=== PATIENT | male | born 1950 | race Caucasian/White ===

== ENCOUNTER 2017-05-09 17:06 | Inpatient (IN) | payer MEDICARE ==
[2017-05-09 18:27] LABS: Hematocrit 40 % (42-52); Hemoglobin 13.2 g/dl (14.0-18.0); Mean Corpuscular HGB Conc 33 g/dl (31-36); Mean Corpuscular Hemoglobin 28 pg (27-31); Mean Corpuscular Volume 86 fL (80-94); Mean Platelet Volume 8 um3 (7.4-10.4); Red Blood Count 4.63 10^6/ul (4.0-5.4); Red Cell Distribution Width 15 % (10.5-15); White Blood Count 12.5 10^3/ul (3.5-10.8)
[2017-05-09 19:00] LABS: Urine Bacteria 1+ (Absent); Urine Bilirubin Negative (Negative); Urine Glucose Negative (Negative); Urine Nitrite Negative (Negative)
[2017-05-09 19:06] LABS: Albumin 3.7 g/dL (3.2-5.2); BUN/Creatinine Ratio 21.1 (8-20); EGFR African American 81.9 (>60); EGFR Non-African American 63.7 (>60); Potassium 4.8 mmol/L (3.5-5.0); Total Bilirubin 0.3 mg/dL (0.2-1.0); Total Protein 6.7 g/dL (6.4-8.9)
[2017-05-09] MEDS ORDERED: cefTRIAXone VIAL(*) 1,000 MG VIAL IM ONE (19:16)
[2017-05-09] MEDS ORDERED: Lidocaine 1%* 5 ML VIAL ONE (19:33)
[2017-05-09] MEDS ORDERED: Lidocaine 1%* 5 ML VIAL INJ ONE (19:40)
[2017-05-09] MEDS ORDERED: Ondansetron INJ* 2 MG/ML VIAL IV PRN (21:38)
[2017-05-09] MEDS ORDERED: Acetaminophen TAB* 325 MG PO PRN (21:38)
[2017-05-09] MEDS ORDERED: Dextrose 50% Syringe 50 ML* 25 GM/50 ML SYRINGE IV PUSH PRN (21:38)
[2017-05-09] MEDS ORDERED: NS 0.9% 1000 ML* 1,000 ML IV SCH (21:45)
[2017-05-09] MEDS ORDERED: NS 0.9% 1000 ML* 1,000 ML IV ONE (21:48)
[2017-05-09] MEDS ORDERED: Albuterol HFA INHALER* 8 gm MDI INH PRN (21:52)
[2017-05-09] MEDS ORDERED: Famotidine TAB* 20 MG PO PRN (21:52)
--- NOTE | 2017-05-09 22:19 | ED ---
Monae Keating Gabriel, scribed for Triny Webb MD on 05/09/17 at 1750 . GI/ HPI - HPI Summary HPI Summary: This patient is a 67 year old M BIBA to [facility] accompanied by his caregiver with a chief complaint of burning on peeing since 3 days ago. The patient rates the pain 5/10 in severity. Patient reports ABD distension. Patient denies fever, hematuria, chills, v/d, LOWRY, double vision, ear ache, CP, SOB, belly pain, back pain, anxiety, and depression. Pt has no catheter and reports a hard time emptying his bladder. His aide says his blood sugar is usually around 200 and thats where it was today. - History of Current Complaint Chief Complaint: EDUrogenitalProblems Stated Complaint: POSSIBLE UTI Hx Obtained From: Patient Onset/Duration: Started Days Ago - 2, Still Present Timing: Constant Pain Intensity: 5 Additional Locations for Males: Penis Associated Signs and Symptoms: Positive: Negative - fever, hematuria, chills, v/ d, LOWRY, double vision, ear ache, CP, SOB, belly pain, back pain, anxiety, and depression, Other: - ABD distension Aggravating Factor(s): Urination - Additional Pertinent History Primary Care Physician: KRISTIN - Allergy/Home Medications Allergies/Adverse Reactions: Allergies Allergy/AdvReac Type Severity Reaction Status Date / Time Shellfish Allergy Allergy Severe Anaphylatic Verified 12/12/15 08:40 Shock PMH/Surg Hx/FS Hx/Imm Hx Previously Healthy: No Endocrine/Hematology History: Reports: Hx Diabetes - ON INSULIN, BEEN Dx 1 YEAR Denies: Hx Anticoagulant Therapy, Hx Thyroid Disease Cardiovascular History: Reports: Hx Coronary Artery Disease, Hx Hypercholesterolemia, Hx Hypertension - ON DAILY MEDS, Other Cardiovascular Problems/Disorders - STATES CARDIAC STENTS " FEW YEARS AGO" Denies: Hx Angina, Hx Congestive Heart Failure, Hx Myocardial Infarction, Hx Pacemaker/ICD, Hx Valvular Heart Disease Respiratory History: Reports: Hx Asthma, Hx Pneumonia, Hx Sleep Apnea - DOES NOT USE AID, Other Respiratory Problems/Disorders - PNA Denies: Hx Chronic Obstructive Pulmonary Disease (COPD) GI History: Reports: Hx Gastroesophageal Reflux Disease, Hx Hiatal Hernia - ON DAILY MEDS History: Reports: Hx Benign Prostatic Hyperplasia, Hx Kidney Stones - Hx OF, MANY YEARS AGO, PASSED Denies: Hx Renal Disease Musculoskeletal History: Reports: Hx Back Problems Comment Only: Other Musculoskeletal History - HAD LUMBAR LAMINECTOMY "FEW YEARS AGO" PER PT Sensory History: Reports: Hx Contacts or Glasses Opthamlomology History: Reports: Hx Contacts or Glasses Neurological History: Reports: Hx Nerve Disease Denies: Hx Dementia, Hx Migraine, Hx Seizures, Other Neuro Impairments/ Disorders Psychiatric History: Reports: Hx Anxiety, Hx Depression Denies: Hx Panic Disorder, Hx Substance Abuse - Surgical History Surgery Procedure, Year, and Place: 2 CARDIAC STENTS. GALLBLADDER. COLON RESECTION. LAMINECTOMY Hx Anesthesia Reactions: No Infectious Disease History: No Infectious Disease History: Denies: Hx Hepatitis, Hx Human Immunodeficiency Virus (HIV), Traveled Outside the [place] in Last 30 Days - Family History Known Family History: Positive: Hypertension - ESSENBTIAL PRIMARY - Social History Alcohol Use: None Substance Use Type: Reports: None Smoking Status (MU): Never Smoked Tobacco Have You Smoked in the Last Year: No Review of Systems Negative: Fever, Chills Negative: Blurred Vision Negative: Ear Ache Negative: Chest Pain Negative: Shortness Of Breath Positive: Other - ABD distension . Negative: Vomiting, Diarrhea Positive: dysuria. Negative: hematuria Musculoskeletal: Negative - back pain Negative: Anxious, Depressed All Other Systems Reviewed And Are Negative: No Physical Exam - Summary Physical Exam Summary: Appearance: Alert, conversive, nontoxic appearing, obese, generalized weakness Skin: Warm, dry, no mottling, no rashes, no contusions HEENT: EOMI, PERRL, dry mucous membranes Neck: No masses on the neck, supple Respiratory: Clear to auscultation, breath sounds present, no rales, no rhonchi , no wheezes Cardiovascular: RRR, pulses are symmetrical in both lower and upper extremities Abdomen: Soft, non-tender, distended, slight suprapubic tenderness Bowel Sounds: Present Musculoskeletal: No CVA tenderness, no obvious deformity, moving all extremities in a grossly normal manner. Bilateral LE edema Neurological: A&Ox3, CN II-XII Intact, moving all extremities symmetrically Psychiatric: Normal affect and mood Triage Information Reviewed: Yes Vital Signs On Initial Exam: Initial Vitals BP 141/85 05/09/17 17:39 Vital Signs Reviewed: Yes - [place]jo Coma Scale Coma Scale Total: 15 Diagnostics - Vital Signs Vital Signs Temp Pulse Resp BP Pulse Ox 05/09/17 17:40 97.6 F 120 20 141/85 93 05/09/17 17:39 141/85 - Laboratory Lab Results: Lab Results 05/09/17 05/09/17 05/09/17 Range/Units 18:10 18:10 18:28 WBC 12.5 H (3.5-10.8) 10^3/ul RBC 4.63 (4.0-5.4) 10^6/ul Hgb 13.2 L (14.0-18.0) g/dl Hct 40 L (42-52) % MCV 86 (80-94) fL MCH 28 (27-31) pg MCHC 33 (31-36) g/dl RDW 15 (10.5-15) % Plt Count 327 (150-450) 10^3/ul MPV 8 (7.4-10.4) um3 Neut % (Auto) 71.7 (38-83) % Lymph % (Auto) 16.2 L (25-47) % [place] % (Auto) 8.8 (1-9) % Eos % (Auto) 2.2 (0-6) % Baso % (Auto) 1.1 (0-2) % Absolute Neuts (auto) 8.9 H (1.5-7.7) 10^3/ul Absolute Lymphs (auto) 2.0 (1.0-4.8) 10^3/ul Absolute Monos (auto) 1.1 H (0-0.8) 10^3/ul Absolute Eos (auto) 0.3 (0-0.6) 10^3/ul Absolute Basos (auto) 0.1 (0-0.2) 10^3/ul Absolute Nucleated RBC 0 10^3/ul Nucleated RBC % 0 Sodium 134 (133-145) mmol/L Potassium 4.8 (3.5-5.0) mmol/L Chloride 96 L (101-111) mmol/L Carbon Dioxide 32 (22-32) mmol/L Anion Gap 6 (2-11) mmol/L BUN 24 (6-24) mg/dL Creatinine 1.14 (0.67-1.17) mg/dL Est GFR ( Amer) 81.9 (>60) Est GFR (Non-Af Amer) 63.7 (>60) BUN/Creatinine Ratio 21.1 H (8-20) Glucose 254 H (70-100) mg/dL Calcium 9.0 (8.6-10.3) mg/dL Total Bilirubin 0.30 (0.2-1.0) mg/dL AST 12 L (13-39) U/L ALT 46 (7-52) U/L Alkaline Phosphatase 126 H (34-104) U/L Total Protein 6.7 (6.4-8.9) g/dL Albumin 3.7 (3.2-5.2) g/dL Globulin 3.0 (2-4) g/dL Albumin/Globulin Ratio 1.2 (1-3) Urine Color Yellow Urine Appearance Cloudy Urine pH 5.0 (5-9) Ur Specific [place] 1.018 (1.010-1.030) Urine Protein 2+(100 mg/dl) H (Negative) Urine Ketones Negative (Negative) Urine Blood 1+ H (Negative) Urine Nitrate Negative (Negative) Urine Bilirubin Negative (Negative) Urine Urobilinogen Negative (Negative) Ur Leukocyte Esterase 3+ H (Negative) Urine WBC (Auto) 3+(>20/hpf) H (Absent) Urine RBC (Auto) 3+(>10/hpf) H (Absent) Urine Bacteria 1+ H (Absent) Urine Glucose Negative (Negative) Result Diagrams: 05/09/17 18:10 05/09/17 18:10 Lab Statement: Any lab studies that have been ordered have been reviewed, and results considered in the medical decision making process. Re-Evaluation - Re-Evaluation First Eval Re-Evaluation Time: 21:08 Change: Unchanged - Patient states that he is unable to ambulate alone or even get out of his bed and that his home health aides come every day for 3 hours to take care of him. He says he is unable to care for himself and states if he relieves himself he must sit in it until home health aide comes. He has talked to his brother about this problem and would like to go in a chcf. Obviously the patient is unable to care for himself for this reasons patient will not be discharged. GIGU Course/Dx - Course Assessment/Plan: This patient is a 67 year old M BIBA to [facility] accompanied by his caregiver with a chief complaint of burning on peeing since 3 days ago. The patient rates the pain 5/10 in severity. Test results with no significant abnormalities except for UA shows pt has a bladder infection giving a shot of Rocephin and will be sending him home. Patient will be discharged with prescription for Bactrim and follow up from PCP. The patient is agreeable with this plan. At the time of discharge, pt conveyed to the nurse that he is unable to get out of his bed at home and his home health daycare provider is only at his house. I had a lengthy conversation with pt regarding his lack of mobilty and lack of abilty to care for himself. He further states that he and his brother have had conversations about him going to a chcf. he is not currently receiving any PT at home. Pt is stable and non-toxic but will require placement. I discussed this with the hospitalist who agrees to admit. - Diagnoses Provider Diagnoses: UTI (urinary tract infection), Weakness Discharge - Discharge Plan Condition: Stable Disposition: ADMITTED TO [facility] Prescriptions: Sulfamethox/Trimethoprim DS* [Bactrim DS 800/160 TAB*] 1 tab PO BID #14 tab Patient Education Materials: Urinary Traction Infection in Older Adults (ED) Referrals: Stefani Alvarez MD [Primary Care Provider] - Additional Instructions: Take bactrim twice a day for 7 days. return if worse or any new symptoms. It is important to follow up with your primary care physician. Take all medications as previously instructed. The documentation as recorded by the Monae arreguin Gabriel accurately reflects the service I personally performed and the decisions made by me, Triny Webb MD.
--- NOTE | 2017-05-09 23:37 | HP ---
CC: Dr. Alvarez * HISTORY AND PHYSICAL: DATE OF ADMISSION: 05/09/17 PRIMARY CARE PROVIDER: Dr. Alvarez. ATTENDING PHYSICIAN WHILE IN THE HOSPITAL: Beto Albert MD * (report dictated by Noam Schuster NP). CHIEF COMPLAINT: 1. Weakness. 2. Dysuria. HISTORY OF PRESENT ILLNESS: Mr. Hatfield is 67-year-old male patient carries quite a significant history with history of NPH, he has a CAR PICK UP DRIVER shunt, COSMO, noncompliant with his mask. He also carries history of diabetes, hypertension, hyperlipidemia, asthma, BPH, CAD, obesity, diverticulosis, status post partial colectomy for diverticulitis, GERD, chronic back pain, history of an abnormal gait comes, into our ER today stating that over the last month to 2 months, he has noticed he has had progressive steady decline in his functional status. He has been having more trouble with transfers. He has been having some more increasing weakness but over the last 3 days, he has had pain with urination. He has had some penile pain. He has had no chills or fevers. No back pain. He says he just is having kind of suprapubic pelvic pain. He was concerned today because the pain was not getting any better and he wanted to come in to be evaluated. He denied having any chest pain and no shortness of breath. No fevers or chills. Denied having any vomiting or diarrhea, says he just feels hungry now. So, he came into the ED, was evaluated, it was noted that he had elevated white count of 12,000. In addition to this, his heart rate was right around 90. In addition to this, it was also noted that he appeared to have UTI. Because of these findings, we were asked to evaluate for admission. PAST MEDICAL HISTORY: Significant for: 1. Normal pressure hydrocephalus. 2. COSMO. 3. Abnormal gait. 4. History of peripheral edema. 5. Hypertension. 6. Hyperlipidemia. 7. Diabetes. 8. Asthma. 9. BPH. 10. CAD. 11. Obesity. 12. Diverticulitis in the past. 13. GERD. 14. Chronic back pain. PAST SURGICAL HISTORY: He has had a cholecystectomy. He has had laminectomy. He has had a partial colectomy. He has had heart catheterization. He has had a CAR PICK UP DRIVER shunt placement. HOME MEDICATIONS: According to an old list in our computer and we are going to try to update this includes: 1. Flomax 1 tablet p.o. daily. 2. Lisinopril 1 tablet daily. 3. Ibuprofen 200 mg daily. 4. B12 500 mcg daily. 5. Atenolol 1 tablet p.o. daily. 6. Tylenol 2 tablets every 6 hours as needed. 7. Famotidine 20 mg p.o. daily as needed. 8. Aspirin 1 tablet p.o. daily. 9. ProAir 2 puffs inhaled 4 times a day as needed. 10. NovoLog subcu a.c. 9 units. 11. Flonase 2 sprays both nares daily as needed. 12. Lantus 74 units subcu at bedtime. 13. Simvastatin 1 tablet daily. 14. Prilosec 1 tablet daily. 15. Multivitamin 1 tablet daily. 16. Glucophage 2 tablets p.o. daily. 17. Glipizide 2 tablets p.o. daily. 18. Bactrim 1 tablet p.o. b.i.d., on which he was initially going to be discharged home on. ALLERGIES TO MEDICATIONS: Include SHELLFISH. FAMILY HISTORY: Both his parents have CAD. SOCIAL HISTORY: He does not smoke, does not drink. Surrogate decision maker is his brother, Nicko. REVIEW OF SYSTEMS: There is no documented fever. He denied having any significant weight change. No double vision. No ear discharge. He denied having any rhinorrhea. No sore throat. No thyroid enlargement. Denies having any chest pain. There is no orthopnea. No nocturnal dyspnea. He denied having any abdominal pain. No nausea, no vomiting. There was dysuria. No frequency. No seizure, no loss of consciousness. No pruritus and no skin ulcerations. Review of 14 systems completed, all others negative. PHYSICAL EXAMINATION GENERAL: At this time, Mr. Hatfield is a 67-year-old male patient. He is sitting on the ED stretcher. He does not appear to be in any acute distress. VITAL SIGNS: Blood pressure 140/77, pulse 92, respirations 16, O2 sat 99%, temperature 97.6. HEENT: Head: Atraumatic. Eyes: EOMs are intact. Sclerae are anicteric and not pale. Throat: Oral mucosa appears to be moist. No oropharyngeal erythema. NECK: Supple. LUNGS: Clear to auscultation bilaterally. No wheezes, rales, or rhonchi. HEART: Sounds S1, S2. Regular rate and rhythm. No murmurs, rubs, or gallops. ABDOMEN: Soft, flat, nontender. Bowel sounds were present. He did have some tenderness in the suprapubic area. EXTREMITIES: Pulses were 2+ throughout. He is able to move all 4 extremities. He has about 4/5 strength in the lower extremities bilaterally. He has 5/5 strength in upper extremities. No peripheral edema. NEUROLOGIC: He is awake, alert and oriented x3. His tongue is midline. Auto Detailer were equal. No gross focal deficits. SKIN: Intact. LABORATORY DATA: WBC 12.5, RBC 4.63, hemoglobin 13.2, hematocrit 40, platelet count 327. Sodium 134, potassium 4.8, chloride 96, bicarb 32, BUN 24, creatinine 1.14, glucose 240, calcium 9.0. Total bilirubin 0.3, AST 12, ALT 46 , alk phos 126. Albumin 3.7. Urine showed 2+ protein, 1+ blood, 3+ leukocyte esterase, 2+ wbc's, 2+ rbc, 1+ bacteria. Old medical records were reviewed. ASSESSMENT AND PLAN: Mr. Hatfield is a 67-year-old male patient coming into the ED today with complaints of weakness progressively getting worse over the last month, found to have urinary tract infection. He will be admitted under inpatient status for: 1. Urinary tract infection with signs of early sepsis, as evidenced by he does have an elevated heart rate right around 90. In addition to this, he does have a white count of 12.5 thousand. My plan will be to go ahead and give him a liter of fluid and get lactic acid, blood cultures, put him on Rocephin with a suspected source as urinary and continue to follow. 2. Weakness. He has progressively been declining he says over the last month or two months. So, I am going to get a CT of the head just to evaluate the CAR PICK UP DRIVER shunt to make sure it is stable. If there are any questions with this, we certainly will get consult from Neurosurgery. I will certainly get a PT/OT consult and the patient is interested in subacute rehab stay. 3. Normal pressure hydrocephalus. Again, we are going to evaluate his shunt with CT scan. 4. Obstructive sleep apnea. He is noncompliant with his CPAP. We will continue supportive care. 5. Abnormal gait. Again, we have ordered PT. 6. Diabetes: Lispro sliding scale. 7. Hypertension: Continue meds as described. 8. Hyperlipidemia: Continue statin. 9. Asthma: Continue p.r.n. ProAir. 10. Benign prostate hyperplasia: Continue Flomax. 11. History of coronary artery disease: Continue with aspirin therapy. He is also on a statin. Continue these. 12. History of gastroesophageal reflux disease: Continue PPI therapy. 13. Chronic back pain: Continue medications for pain. 14. DVT prophylaxis: He will be placed on heparin subcu. 15. Code status: Full code. 16. Fluid and nutrition: He can have a consistent carb diet. TIME SPENT: Time spent on the admission was 60 minutes, greater than half of the time was spent [id number] with the patient, obtaining history and physical , the other half of the time was spent going over the plan of care with the patient and implementing the plan of care. I did discuss plan of care with my attending, Dr. Albert, who is in agreement. NOAM SCHUSTER, ELIZABETH [id number]/CPS #: [id number] MADHAV
[2017-05-10] MEDS: Heparin VIAL(*) 5000 UNITS/ML VIAL (FIVE THOUSAND) SUBCUT SCH ×4 (00:04→21:38)
[2017-05-10 05:30] LABS: Hematocrit 36 % (42-52); Hemoglobin 11.8 g/dl (14.0-18.0); Mean Corpuscular HGB Conc 33 g/dl (31-36); Mean Corpuscular Hemoglobin 28 pg (27-31); Mean Corpuscular Volume 86 fL (80-94); Mean Platelet Volume 9 um3 (7.4-10.4); Red Blood Count 4.14 10^6/ul (4.0-5.4); Red Cell Distribution Width 15 % (10.5-15); White Blood Count 9.4 10^3/ul (3.5-10.8)
[2017-05-10 05:42] LABS: BUN/Creatinine Ratio 20.5 (8-20); Calcium 8.5 mg/dL (8.6-10.3); EGFR African American 75.7 (>60); EGFR Non-African American 58.9 (>60); Potassium 4.4 mmol/L (3.5-5.0)
--- NOTE | 2017-05-10 07:33 | HP ---
H&P (Free Text) History and Physical: Mr Hatfield is a 67YO male HX NPH s/p PERCHER shunt, DM2, HTN, & CAD who reports a gradual decline over the previous month with increasing weakness and inability to care for himself found to have a UTI. He will be admitted for ABX and evaluation of his hydrocephalus to r/o worsening.
--- NOTE | 2017-05-10 08:26 | RAD ---
Indication: Weakness. Current urinary tract infection. Slight confusion. Comparison: December 13, 2015 CT. Technique: Noncontrast CT vertex of skull through foramen magnum. Report: Tip of RIGHT frontal shunt catheter enters the RIGHT lateral ventricle and terminates at the level of the septum pellucidum without change. Unchanged magnitude of ventriculomegaly at the lateral and third ventricles with the atrium of the RIGHT lateral ventricle measuring 2.8 cm. Unremarkable fourth ventricle. Negative for sulcal effacement. Patent basal cisterns. Negative for moser matter white matter obscuration, intra or extra-axial hemorrhage, or mass effect. Unremarkable visualized orbital contents. No suspicious calvarial or skull base lesion evident. Clear visualized paranasal sinuses and mastoid air spaces. Unremarkable scalp. IMPRESSION: 1. No acute intracranial process. 2. Unchanged position of the RIGHT frontal shunt catheter and magnitude of lateral and third ventriculomegaly. Negative for significant mass effect.
[2017-05-10] MEDS: Multivitamins/Minerals TAB PO SCH (09:16)
[2017-05-10] MEDS: Atenolol TAB* 25 MG PO SCH (09:17)
[2017-05-10] MEDS: Tamsulosin CAP* 0.4 MG PO SCH (09:17)
[2017-05-10] MEDS: Insulin LISPRO* 1 UNITS UNIT SUBCUT SCH ×4 (09:17→18:27)
[2017-05-10] MEDS: Lisinopril TAB* 10 MG PO SCH (09:17)
[2017-05-10] MEDS: Omeprazole CAP* 20 MG PO SCH (09:17)
[2017-05-10] MEDS: Aspirin EC TAB* 325 MG PO SCH (09:17)
--- NOTE | 2017-05-10 13:55 | PN ---
Subjective Date of Service: 05/10/17 Interval History: Mr. Hatfield states that he has been weaker but that this is a chronically progressive problem which has worsened. In the past three days he has noted burning in his low abdomen with urination. He denies fever, chills. He has had no chest pain, SOB, or nausea. He reports that this burning pain has decreased since he was given antibiotics in the emergency room. Objective Active Medications: Acetaminophen (Tylenol Tab*) 650 mg PO Q6H PRN Albuterol (Ventolin Hfa Inhaler*) 2 puff INH QID PRN Aspirin (Ecotrin Ec Tab*) 325 mg PO DAILY [facility] Atenolol (Tenormin Tab*) 25 mg PO DAILY [facility] Atorvastatin Calcium (Lipitor*) 5 mg PO BEDTIME [facility] Dextrose (D50w Syringe 50 Ml*) 12.5 gm IV PUSH .FOR FS < 60 - SS PRN Famotidine (Pepcid Tab*) 20 mg PO DAILY PRN Heparin Sodium (Porcine) (Heparin Vial(*)) 5,000 units SUBCUT Q8HR [facility] Sodium Chloride (Ns 0.9% 1000 Ml*) 1,000 mls @ 100 mls/hr IV PER RATE [facility] Insulin Glargine (Lantus(*)) 74 units SUBCUT BEDTIME [facility] Insulin Human Lispro (Humalog*) 0 units SUBCUT AC [facility] Lisinopril (Prinivil Tab*) 10 mg PO DAILY [facility] Multivitamins/Minerals (Theragran/Minerals Tab*) 1 tab PO DAILY [facility] Omeprazole (Prilosec Cap*) 20 mg PO DAILY [facility] Ondansetron HCl (Zofran Inj*) 4 mg IV Q6H PRN Tamsulosin HCl (Flomax Cap*) 0.4 mg PO DAILY [facility] Vital Signs: Temp Pulse Resp BP Pulse Ox 98.0 F 78 16 121/65 94 05/10/17 11:23 05/10/17 11:23 05/10/17 11:23 05/10/17 11:23 05/10/17 11:23 Oxygen Devices in Use Now: None Appearance: Male sitting up in chair in NAD Eyes: No Scleral Icterus Ears/Nose/Mouth/Throat: Mucous Membranes Moist Neck: Trachea Midline Respiratory: Symmetrical Chest Expansion and Respiratory Effort, Clear to Auscultation Cardiovascular: NL Sounds; No Murmurs; No JVD, - - +1 pitting edema Abdominal: NL Sounds; No Tenderness; No Distention Extremities: No Edema Skin: No Rash or Ulcers Neurological: Alert and Oriented x 3, NL Muscle Strength and Tone Nutrition: Taking PO's Result Diagrams: 05/10/17 04:57 05/10/17 04:57 Additional Lab and Data: Vital Signs: Temp Pulse Resp BP Pulse Ox 98.0 F 78 16 121/65 94 05/10/17 11:23 05/10/17 11:23 05/10/17 11:23 05/10/17 11:23 05/10/17 11:23 Assess/Plan/Problems-Billing Assessment: Mr. Hatfield is a 67 yo male with a PMH of NPH with AUDIT CONTROL CLERK shunt, COSMO, DM, HTN who was admitted on 05/10/17 with UTI and weakness. - Patient Problems (1) UTI (urinary tract infection) Comment: - Continue ceftriaxone, await cultures. - Based on tachycardia and elevated WBC, would treat at prostatitis with extended duration of antibiotics. (2) Diabetes Comment: - BGs 400. - Increase Lantus, add standing lispro to sliding scale with meals (3) Normal pressure hydrocephalus Comment: - Neurosurgery to consult. (4) CAD (coronary artery disease) Comment: - Stable. - Cont ASA, atenolol and atorvastatin. (5) GERD (gastroesophageal reflux disease) Comment: - Continue omeprazole. (6) HLD (hyperlipidemia) Comment: - Continue atorvastatin. (7) HTN (hypertension) Comment: - SBP 120-140s. - Controlled with atenolol and lisinopril (8) COSMO on CPAP Comment: - CPAP (9) DVT prophylaxis Comment: SCDs only (10) Full code status Status and Disposition: Inpatient. Anticipate discharge to home when medically stable.
[2017-05-10] MEDS ORDERED: cefTRIAXone(*) 1 GM in D5W 50 ML BAG* 50 ML IVPB SCH (14:30)
[2017-05-10] MEDS ORDERED: Magnesium Hydroxide LIQ* 30 ML UDC PO ONE (19:47)
[2017-05-10] MEDS ORDERED: Insulin GLARGINE(*) 1 UNITS UNIT SUBCUT SCH (21:00)
[2017-05-10] MEDS: Insulin GLARGINE(*) 1 UNITS UNIT SUBCUT SCH (21:38)
[2017-05-10] MEDS: Atorvastatin* 10 MG TAB PO SCH (21:38)
[2017-05-11 05:03] LABS: Calcium 8.5 mg/dL (8.6-10.3); EGFR African American 90.1 (>60); Potassium 4.7 mmol/L (3.5-5.0)
[2017-05-11] MEDS: Heparin VIAL(*) 5000 UNITS/ML VIAL (FIVE THOUSAND) SUBCUT SCH ×3 (06:08→21:23)
[2017-05-11] MEDS: Aspirin EC TAB* 325 MG PO SCH (08:33)
[2017-05-11] MEDS: Tamsulosin CAP* 0.4 MG PO SCH (08:33)
[2017-05-11] MEDS: Omeprazole CAP* 20 MG PO SCH (08:33)
[2017-05-11] MEDS: Atenolol TAB* 25 MG PO SCH (08:33)
[2017-05-11] MEDS: Lisinopril TAB* 10 MG PO SCH (08:33)
[2017-05-11] MEDS: Multivitamins/Minerals TAB PO SCH (08:33)
[2017-05-11] MEDS: Insulin GLARGINE(*) 1 UNITS UNIT SUBCUT SCH ×2 (08:35→21:22)
[2017-05-11] MEDS: Insulin LISPRO* 1 UNITS UNIT SUBCUT SCH ×7 (08:37→17:44)
--- NOTE | 2017-05-11 09:54 | CONSULT ---
Consult Consult: Neurosurgery Consult Date of Admission: 05/09/17 Date of Consult: 05/11/17 Reason for Consult: Generalized weakness, NPH Referring Provider: Dina Catherine NP Primary Care Physician: Dr. Alvarez HPI: This is a 67 year old male with past medical history significant for NPH s/ p FRAUD EXAMINER shunt placement in December 2015, HTN, CAD, obesity, COSMO, peripheral edema, and Diabetes who [place] [facility] [place] complaints of burning with urination and worsening weakness. He has a history of FRAUD EXAMINER shunt placement for NPH on 12/12/[address] Costello. Pre-operatively, he reports experiencing symptoms of urinary incontinence, gait instability requiring a wheelchair and short term memory loss. Post-operatively, he was discharged to [facility] where he underwent rehab. Per the patient, he regained much of his strength and mobility while at rehab and was able to use a walker instead of a wheelchair. He also reports some weight loss with increased physical fitness. He reports no improvement in memory and incontinence post-operatively. He was discharged home from [facility] and continued to do well for a short period of time. Since discharge home, continues to have nursing care and aides assist with activities of daily living including bathing, cooking meals, toileting, and getting up out of bed. He was recommended not to get out of bed without assistance. It is unclear whether or not he is participating in physical or occupational therapy at home. Since returning home, he reports a steady decline in mobility and slowly worsening generalized weakness. He now uses a wheelchair at all times and is able to stand for transfers. He has continued to have intermittent episodes of urinary incontinence, unchanged from before surgery. The episodes are intermittent and consist of small volumes of urine, not the entire bladder. He also continues to have difficulty with short term memory which has been stable post-operatively. He denies headache, vision changes, difficulty breathing, chest pain, blurred vision, difficulty swallowing or eating, abdominal pain, nausea, vomiting, bilateral upper extremity and lower extremity numbness, tingling, weakness and pain. He does complain of mild low back pain when he first gets up in the morning. He denies lightheadedness, dizziness, tremor and seizure. He reports pedal edema which has been present for several months. He reports loss of interest in many hobbies and daily activities. Past medical history: 1. NPH, s/p FRAUD EXAMINER shunt placement 12/12/15 Dr. Costello 2. HTN 3. CAD 4. COSMO 5. Obesity 6. Diabetes 7. Peripheral edema 8. Asthma 9. BPH 10. Diverticulosis 11. GERD 12. HLD Past surgical history: 1. FRAUD EXAMINER shunt placement, 12/11/16 Dr. Costello [facility] [place]. [place] colect[place] 3. Cholecystectomy Home medications: 1. Atenolol TAB* [Tenormin TAB* 25 MG] 1 tab PO DAILY 05/08/12 [History Confirmed 05/09/17] 2. Simvastatin TAB(NF) [Zocor 10 MG (NF)] 1 tab PO BEDTIME 05/08/12 [History Confirmed 05/09/17] 3. glipiZIDE TAB.XL* [Glucotrol Xl*] 2 tab PO DAILY 05/08/12 [History Confirmed 05/09/17] 4. metFORMIN* [Glucophage 1000 MG TAB *] 2 tab PO DAILY 05/08/12 [History Confirmed 05/09/17] 5. Multivitamins/Minerals TAB* [Theragran/minerals TAB*] 1 tab PO DAILY [History Confirmed 05/09/17] 6. Omeprazole CAP* [Prilosec CAP* 20 MG] 1 tab PO DAILY 09/24/13 [History Confirmed 05/09/17] 7. Tamsulosin CAP* [Flomax CAP*] 1 tab PO DAILY 10/03/15 [History Confirmed 01/16] 8. Albuterol inh POWDER (NF) [Proair Respiclick] 2 puff IN QID PRN 11/23/15 [ History Confirmed 05/09/17] 9. Aspirin 1 tab PO DAILY 11/23/15 [History Confirmed 05/09/17] 10. Blood Glucose Monitoring Suppl [Freestyle Lite Blood Gluc] 1 mis XX DAILY [History Confirmed 12/12/15] 11. Cyanocobalamin TAB* [Vitamin B12 TAB*] 500 mcg PO DAILY 11/23/15 [History Confirmed 05/09/17] 12. Fluticasone NASAL * [Flonase *] 2 spray BOTH NARES DAILY PRN 11/23/15 [ History Confirmed 05/09/17] 13. Ibuprofen [Ibuprofen 200 MG] 200 mg PO DAILY PRN 11/23/15 [History Confirmed 05/09/17] 14. Insulin Glargine [Lantus Solostar] 74 units SUBCUT BEDTIME 11/23/15 [ History Confirmed 05/09/17] 15. Insulin Pen Needle [Bd Pen Needle/Short/Ultra 31G X 8 mm] 1 mis XX DAILY [History Confirmed 12/12/15] 16. Lisinopril TAB* [Prinivil TAB 10 MG*] 1 tab PO DAILY 11/23/15 [History Confirmed 05/09/17] 17. Acetaminophen 2 tab PO Q6H PRN 12/12/15 [History Confirmed 05/09/17] 18. Famotidine 20 mg PO DAILY PRN 12/12/15 [History Confirmed 05/09/17] 19. Humalog 9 units SUBCUT AC 12/12/15 [History Confirmed 05/09/17] 20. Sulfamethox/Trimethoprim DS* [Bactrim DS 800/160 TAB*] 1 tab PO BID #14 tab 05/09/17 [Rx] Allergies: 1. Shellfish Social history: This patient lives at home alone and has daily nursing and aide care. He does not smoke and does not consume alcohol. ROS: Full ROS completed and all pertinent findings stated in HPI. All others negative. Physical exam: Vital Signs: Temp Pulse Resp BP Pulse Ox 97.4 F 76 16 132/62 100 05/11/17 19:11 05/11/17 19:11 05/11/17 19:25 05/11/17 19:11 05/11/17 19:11 General: Patient is alert and oriented to person, place and time. No distress. Sitting up comfortably in bed conversing with friend. HEENT: Right frontal FRAUD EXAMINER shunt valve palpable, surgical wound well healed. PERRL , EOMI. Gross hearing intact. Moist mucus membranes. Neck: Neck is supple, symmetric and nontender. CV: Radial pulses 2+ and equal. Pedal pulses difficult to palpate secondary to edema. Lungs: Breathing is nonlabored and lungs are clear. Abdomen: The abdomen is obese and mildly distended. Nontender to palpation. Normoactive bowel sounds. Neuro: Speech is clear and coherent. Oriented to person, place and time. CN II- XII intact. Finger to nose coordination mildly slow. Strength in upper and lower extremities 5/5 with exception of left hip flexor is 4+/5. No pronator drift. Hoffmans negative. Sensation intact throughout. Extremities: Pedal and pretibial edema, baseline per patient. No clubbing or cyanosis. Imagin. CT on 05/09/17 shows FRAUD EXAMINER shunt placement on the right and unchanged ventriculomegaly compared to post-operative CT on 12/13/15. Assessment and Plan: This is a 67 year old with multiple medical conditions who presented with dysuria and generalized weakness. He has a history of FRAUD EXAMINER shunt placement on 12/12/15 for NPH. Post-operatively, gait and weakness improved while at rehab but after returning home, mobility worsened. Symptoms of intermittent incontinence and short term memory difficulty are persistent and unchanged since pre-op. Given the patient's presentation, history, CT brain results and current symptoms, I do not expect that the FRAUD EXAMINER shunt is dysfunctional. I suspect weakness related to deconditioning while sedentary at home. Restarting physical and occupational therapy is recommended. At this time , no further NPH work up is indicated. He is welcome to follow up in office with us as needed. This case was discussed and plan formulated with Dr. Costello. Plan discussed with Dina Cathernie NP.
[2017-05-11] MEDS ORDERED: Insulin LISPRO* 1 UNITS UNIT SUBCUT ONE (12:01)
--- NOTE | 2017-05-11 13:18 | PN ---
Subjective Date of Service: 05/11/17 Interval History: Mr. Hatfield states that he is feeling much better. He has no dysuria or lower abdominal pain. He denies any other complaint including chest pain, SOB, nausea , or abdominal pain. Objective Active Medications: Acetaminophen (Tylenol Tab*) 650 mg PO Q6H PRN Albuterol (Ventolin Hfa Inhaler*) 2 puff INH QID PRN Aspirin (Ecotrin Ec Tab*) 325 mg PO DAILY [facility] Atenolol (Tenormin Tab*) 25 mg PO DAILY [facility] Atorvastatin Calcium (Lipitor*) 5 mg PO BEDTIME [facility] Dextrose (D50w Syringe 50 Ml*) 12.5 gm IV PUSH .FOR FS < 60 - SS PRN Famotidine (Pepcid Tab*) 20 mg PO DAILY PRN Heparin Sodium (Porcine) (Heparin Vial(*)) 5,000 units SUBCUT Q8HR [facility] Sodium Chloride (Ns 0.9% 1000 Ml*) 1,000 mls @ 100 mls/hr IV PER RATE [facility] Ceftriaxone Sodium 1 gm/ (Dextrose) 50 mls @ 200 mls/hr IVPB Q24H [facility] Insulin Glargine (Lantus(*)) 84 units SUBCUT BEDTIME [facility] Insulin Glargine (Lantus(*)) 20 units SUBCUT 0900 [facility] Insulin Human Lispro (Humalog*) 0 units SUBCUT AC [facility] Insulin Human Lispro (Humalog*) 5 units SUBCUT AC [facility] Lisinopril (Prinivil Tab*) 10 mg PO DAILY [facility] Multivitamins/Minerals (Theragran/Minerals Tab*) 1 tab PO DAILY [facility] Omeprazole (Prilosec Cap*) 20 mg PO DAILY [facility] Ondansetron HCl (Zofran Inj*) 4 mg IV Q6H PRN Tamsulosin HCl (Flomax Cap*) 0.4 mg PO DAILY [facility] Vital Signs - 8 hr 05/11/17 05/11/17 05/11/17 07:32 08:27 11:56 Temperature 97.5 F 97.4 F Pulse Rate 78 69 Respiratory 16 16 16 Rate Blood Pressure 130/48 114/56 (mmHg) O2 Sat by Pulse 94 95 Oximetry Oxygen Devices in Use Now: None Appearance: Male sitting up in chair, eating lunch, in NAD Eyes: No Scleral Icterus Ears/Nose/Mouth/Throat: Mucous Membranes Moist Neck: Trachea Midline Respiratory: Symmetrical Chest Expansion and Respiratory Effort, Clear to Auscultation Cardiovascular: NL Sounds; No Murmurs; No JVD, - - +1 pitting edema B LEs Abdominal: NL Sounds; No Tenderness; No Distention Lymphatic: No Cervical Adenopathy Extremities: - - +1 pitting edema B LEs Skin: No Rash or Ulcers Neurological: Alert and Oriented x 3, NL Muscle Strength and Tone Nutrition: Taking PO's Result Diagrams: 05/10/17 04:57 05/11/17 04:35 Additional Lab and Data: . Microbiology and Other Data: . Assess/Plan/Problems-Billing Assessment: Mr. Hatfield is a 67 yo male with a PMH of NPH with WOOD STOCK BLANK HANDLER shunt, COSMO, DM, HTN who was admitted on 05/10/17 with UTI and weakness. - Patient Problems (1) UTI (urinary tract infection) Comment: - UA with 3+ LE and 1+ bacteria. Patient with symptoms of dysuria. Urine culture negative. - Plan to treat with 3 week course of cipro out of concern for prostatitis given signs of sepsis on admission and uncontrolled diabetes. (2) Diabetes Comment: - BGs 270-400. - Increase Lantus (add 20units am lispro to 84 units pm lispro), continue standing lispro with lispro sliding scale with meals - Patient reports that his blood sugar is much better controlled at home, ? if secondary in part to infection but his most recent HgbA1c was 10.3. Dr. Alvarez' s most recent progress note mentions that he has had low blood sugar at times which has prevented raising his lantus dosing. (3) Normal pressure hydrocephalus Comment: - Appreciate neurosurgery consult. - No evidence of WOOD STOCK BLANK HANDLER shunt dysfunction, patient's decline has been chronic, incontinence and memory issues are unchanged since shunt was placed in 2016. (4) CAD (coronary artery disease) Comment: - Stable. - Cont ASA, atenolol and atorvastatin. (5) GERD (gastroesophageal reflux disease) Comment: - Continue omeprazole. (6) HLD (hyperlipidemia) Comment: - Continue atorvastatin. (7) HTN (hypertension) Comment: - SBP 120-140s. - Controlled with atenolol and lisinopril (8) COSMO on CPAP Comment: - CPAP (9) DVT prophylaxis Comment: - Heparin SQ. (10) Full code status Status and Disposition: Inpatient. Anticipate discharge to home when medically stable.
[2017-05-11] MEDS: Ciprofloxacin TAB* 500 MG PO SCH (21:20)
[2017-05-11] MEDS: Atorvastatin* 10 MG TAB PO SCH (21:21)
[2017-05-12 04:36] LABS: Hematocrit 38 % (42-52); Hemoglobin 12.6 g/dl (14.0-18.0); Mean Corpuscular HGB Conc 33 g/dl (31-36); Mean Corpuscular Hemoglobin 28 pg (27-31); Mean Corpuscular Volume 85 fL (80-94); Mean Platelet Volume 9 um3 (7.4-10.4); Red Blood Count 4.44 10^6/ul (4.0-5.4); Red Cell Distribution Width 15 % (10.5-15); White Blood Count 10.5 10^3/ul (3.5-10.8)
[2017-05-12] MEDS: Heparin VIAL(*) 5000 UNITS/ML VIAL (FIVE THOUSAND) SUBCUT SCH ×3 (05:30→21:21)
[2017-05-12] MEDS: Lisinopril TAB* 10 MG PO SCH (09:07)
[2017-05-12] MEDS: Aspirin EC TAB* 325 MG PO SCH (09:08)
[2017-05-12] MEDS: Ciprofloxacin TAB* 500 MG PO SCH ×2 (09:08→21:21)
[2017-05-12] MEDS: Atenolol TAB* 25 MG PO SCH (09:08)
[2017-05-12] MEDS: Insulin GLARGINE(*) 1 UNITS UNIT SUBCUT SCH ×2 (09:08→21:21)
[2017-05-12] MEDS: Tamsulosin CAP* 0.4 MG PO SCH (09:08)
[2017-05-12] MEDS: Multivitamins/Minerals TAB PO SCH (09:08)
[2017-05-12] MEDS: Insulin LISPRO* 1 UNITS UNIT SUBCUT SCH ×6 (09:08→18:14)
[2017-05-12] MEDS: Omeprazole CAP* 20 MG PO SCH (09:08)
[2017-05-12] MEDS ORDERED: Docusate CAP* 100 MG PO PRN (12:21)
[2017-05-12] MEDS ORDERED: Senna TAB PO PRN (12:22)
--- NOTE | 2017-05-12 14:09 | PN ---
Subjective Date of Service: 05/12/17 Interval History: Patient states he feels slightly worse than yesterday due to abdominal discomfort that he states feels like constipation. Patient denies dysuria, F/C, N/V, CP, SOB, Dizziness, weakness, or other pain. Patient is a EZ stand out of bed and is very interested in NATALYA. Of note, patient has had a bowel movement the last 3 days and had a BM today after which he felt better. Family History: Unchanged from Admission Social History: Unchanged from Admission Past Medical History: Unchanged from Admission Objective Active Medications: Acetaminophen (Tylenol Tab*) 650 mg PO Q6H PRN PRN Reason: FEVER/PAIN Last Admin: 05/12/17 11:10 Dose: 650 mg Albuterol (Ventolin Hfa Inhaler*) 2 puff INH QID PRN PRN Reason: SOB/WHEEZING Aspirin (Ecotrin Ec Tab*) 325 mg PO DAILY [facility] Last Admin: 05/12/17 09:08 Dose: 325 mg Atenolol (Tenormin Tab*) 25 mg PO DAILY [facility] Last Admin: 05/12/17 09:08 Dose: 25 mg Atorvastatin Calcium (Lipitor*) 5 mg PO BEDTIME [facility] Last Admin: 05/11/17 21:21 Dose: 5 mg Ciprofloxacin (Cipro Tab*) 500 mg PO BID [facility] Last Admin: 05/12/17 09:08 Dose: 500 mg Dextrose (D50w Syringe 50 Ml*) 12.5 gm IV PUSH .FOR FS < 60 - SS PRN PRN Reason: FS < 60 Docusate Sodium (Colace Cap*) 100 mg PO DAILY PRN PRN Reason: CONSTIPATION Famotidine (Pepcid Tab*) 20 mg PO DAILY PRN PRN Reason: HEARTBURN Heparin Sodium (Porcine) (Heparin Vial(*)) 5,000 units SUBCUT Q8HR [facility] Last Admin: 05/12/17 05:30 Dose: 5,000 units Sodium Chloride (Ns 0.9% 1000 Ml*) 1,000 mls @ 100 mls/hr IV PER RATE [facility] Last Admin: 05/10/17 01:57 Dose: 100 mls/hr Insulin Glargine (Lantus(*)) 84 units SUBCUT BEDTIME [facility] Last Admin: 05/11/17 21:22 Dose: 84 units Insulin Glargine (Lantus(*)) 35 units SUBCUT 0900 [facility] Insulin Human Lispro (Humalog*) 0 units SUBCUT AC [facility] PRN Reason: Protocol Last Admin: 05/12/17 12:48 Dose: 12 unit Insulin Human Lispro (Humalog*) 5 units SUBCUT AC [facility] Last Admin: 05/12/17 12:49 Dose: 5 unit Lisinopril (Prinivil Tab*) 10 mg PO DAILY [facility] Last Admin: 05/12/17 09:07 Dose: 10 mg Multivitamins/Minerals (Theragran/Minerals Tab*) 1 tab PO DAILY [facility] Last Admin: 05/12/17 09:08 Dose: 1 tab Omeprazole (Prilosec Cap*) 20 mg PO DAILY [facility] Last Admin: 05/12/17 09:08 Dose: 20 mg Ondansetron HCl (Zofran Inj*) 4 mg IV Q6H PRN PRN Reason: NAUSEA Senna (Senokot Tab*) 1 tab PO DAILY PRN PRN Reason: CONSTIPATION Tamsulosin HCl (Flomax Cap*) 0.4 mg PO DAILY [facility] Last Admin: 05/12/17 09:08 Dose: 0.4 mg Vital Signs - 8 hr 05/12/17 05/12/17 05/12/17 07:34 08:00 11:32 Temperature 97.9 F 97.8 F Pulse Rate 66 72 Respiratory 18 18 17 Rate Blood Pressure 136/69 121/78 (mmHg) O2 Sat by Pulse 96 96 Oximetry Oxygen Devices in Use Now: None Appearance: Patient is a 67yo female who appears stated age and is sitting in the bed in [facility]. Eyes: No Scleral Icterus, PERRLA Ears/Nose/Mouth/Throat: NL Teeth, Lips, Gums, Clear Oropharnyx, Mucous Membranes Moist Neck: NL Appearance and Movements; NL JVP, Trachea Midline Respiratory: Symmetrical Chest Expansion and Respiratory Effort, Clear to Auscultation Cardiovascular: NL Sounds; No Murmurs; No JVD, RRR, - - 2+ Pitting edema in B/L LE which patient states is baseline for him. Abdominal: NL Sounds; No Tenderness; No Distention, No Hepatosplenomegaly, - - No Suprapubic tenderness or CVA tenderness. Lymphatic: No Cervical Adenopathy Extremities: No Clubbing, Cyanosis Skin: No Rash or Ulcers, No Nodules or Sclerosis Neurological: Alert and Oriented x 3, NL Sensation, NL Muscle Strength and Tone Result Diagrams: 05/12/17 04:17 05/11/17 04:35 Additional Lab and Data: . Microbiology and Other Data: . Assess/Plan/Problems-Billing Assessment: Mr. Hatfield is a 67 yo male with a PMH of NPH with PROGRAM DEVELOPER shunt, COSMO, DM, HTN who was admitted on 05/10/17 with UTI and weakness. Patient is much improved and is hoping to go to rehab. - Patient Problems (1) UTI (urinary tract infection) Current Visit: Yes Status: Acute Comment: UA with 3+ LE and 1+ bacteria. Patient with symptoms of dysuria. Urine culture negative. Plan to treat with 3 week course of cipro out of concern for prostatitis given signs of sepsis on admission and uncontrolled diabetes. (2) Diabetes Current Visit: No Status: Acute Code(s): E11.9 - TYPE 2 DIABETES MELLITUS WITHOUT COMPLICATIONS SNOMED Code(s): 22924304 Comment: BGs 194-400. Increase Lantus (35units am glargine 84 units pm glargine), continue standing lispro with lispro sliding scale with meals Patient reports that his blood sugar is much better controlled at home, ? if secondary in part to infection but his most recent HgbA1c was 10.3. Dr. Alvarez' s most recent progress note mentions that he has had low blood sugar at times which has prevented raising his lantus dosing. Fasting AM FSBG was 194 today. (3) Normal pressure hydrocephalus Current Visit: No Status: Acute Code(s): G91.2 - (IDIOPATHIC) NORMAL PRESSURE HYDROCEPHALUS SNOMED Code(s): 45306995 Comment: Appreciate neurosurgery consult. No evidence of PROGRAM DEVELOPER shunt dysfunction, patient's decline has been chronic, incontinence and memory issues are unchanged since shunt was placed in 2016. (4) S/P PROGRAM DEVELOPER shunt Current Visit: No Status: Acute Comment: Functioning properly per neurosurgery. (5) Sepsis Current Visit: No Status: Acute Priority: High Onset Date: 07/04/14 Comment: Resolved (6) CAD (coronary artery disease) Current Visit: No Status: Chronic Priority: Medium Code(s): I25.10 - ATHSCL HEART DISEASE OF [place] CORONARY ARTERY W/O ANG PCTRS SNOMED Code(s): 12662327 Comment: No S/S ACS Cont ASA, atenolol and atorvastatin. (7) GERD (gastroesophageal reflux disease) Current Visit: No Status: Chronic Code(s): K21.9 - GASTRO-ESOPHAGEAL REFLUX DISEASE WITHOUT ESOPHAGITIS SNOMED Code(s): 405235740 Comment: Continue omeprazole. (8) HLD (hyperlipidemia) Current Visit: No Status: Chronic Code(s): E78.5 - HYPERLIPIDEMIA, UNSPECIFIED SNOMED Code(s): 23008602 Comment: Continue atorvastatin. (9) HTN (hypertension) Current Visit: No Status: Chronic Code(s): I10 - ESSENTIAL (PRIMARY) HYPERTENSION SNOMED Code(s): 14378371 Comment: SBP 120-140s. Controlled with atenolol and lisinopril (10) DVT prophylaxis Current Visit: No Status: Acute Priority: Medium Onset Date: 07/04/14 Code(s): LMG0957 - SNOMED Code(s): 803135501 Comment: Heparin SQ. (11) Full code status Current Visit: No Status: Chronic Priority: Medium Onset Date: 07/04/14 Code(s): Z78.9 - OTHER SPECIFIED HEALTH STATUS SNOMED Code(s): 470781663 Status and Disposition: Inpatient. Awaiting bed offer from [facility].
[2017-05-12] MEDS: Atorvastatin* 10 MG TAB PO SCH (21:20)
[2017-05-13 05:39] LABS: Hematocrit 38 % (42-52); Hemoglobin 12.7 g/dl (14.0-18.0); Mean Corpuscular HGB Conc 33 g/dl (31-36); Mean Corpuscular Hemoglobin 29 pg (27-31); Mean Corpuscular Volume 86 fL (80-94); Mean Platelet Volume 9 um3 (7.4-10.4); Red Blood Count 4.45 10^6/ul (4.0-5.4); Red Cell Distribution Width 15 % (10.5-15); White Blood Count 10.6 10^3/ul (3.5-10.8)
[2017-05-13 05:50] LABS: BUN/Creatinine Ratio 16.3 (8-20); Calcium 8.6 mg/dL (8.6-10.3); EGFR Non-African American 58.3 (>60)
[2017-05-13 06:07] LABS: Potassium 5.1 mmol/L (3.5-5.0)
[2017-05-13] MEDS: Heparin VIAL(*) 5000 UNITS/ML VIAL (FIVE THOUSAND) SUBCUT SCH ×3 (06:15→21:56)
[2017-05-13] MEDS ORDERED: Insulin GLARGINE(*) 1 UNITS UNIT SUBCUT SCH (09:00)
[2017-05-13] MEDS: Atenolol TAB* 25 MG PO SCH (09:03)
[2017-05-13] MEDS: Tamsulosin CAP* 0.4 MG PO SCH (09:03)
[2017-05-13] MEDS: Multivitamins/Minerals TAB PO SCH (09:04)
[2017-05-13] MEDS: Omeprazole CAP* 20 MG PO SCH (09:04)
[2017-05-13] MEDS: Aspirin EC TAB* 325 MG PO SCH (09:04)
[2017-05-13] MEDS: Ciprofloxacin TAB* 500 MG PO SCH ×2 (09:04→21:53)
[2017-05-13] MEDS: Insulin LISPRO* 1 UNITS UNIT SUBCUT SCH ×6 (09:08→18:38)
[2017-05-13 13:30] LABS: BUN/Creatinine Ratio 16.7 (8-20); Calcium 8.8 mg/dL (8.6-10.3); EGFR African American 81.9 (>60); EGFR Non-African American 63.7 (>60); Potassium 4.8 mmol/L (3.5-5.0)
--- NOTE | 2017-05-13 18:40 | PN ---
Subjective Date of Service: 05/13/17 Interval History: Patient has no complaints including palpitations, CP, SOB, N/V, Abdominal pain, F/C, Dysuria, urinary frequency, decrease in urine volume, or other pain. Patient in a good mood and excited to go to rehab. Family History: Unchanged from Admission Social History: Unchanged from Admission Past Medical History: Unchanged from Admission Objective Active Medications: Acetaminophen (Tylenol Tab*) 650 mg PO Q6H PRN PRN Reason: FEVER/PAIN Last Admin: 05/12/17 11:10 Dose: 650 mg Albuterol (Ventolin Hfa Inhaler*) 2 puff INH QID PRN PRN Reason: SOB/WHEEZING Aspirin (Ecotrin Ec Tab*) 325 mg PO DAILY [facility] Last Admin: 05/13/17 09:04 Dose: 325 mg Atenolol (Tenormin Tab*) 25 mg PO DAILY [facility] Last Admin: 05/13/17 09:03 Dose: 25 mg Atorvastatin Calcium (Lipitor*) 5 mg PO BEDTIME [facility] Last Admin: 05/12/17 21:20 Dose: 5 mg Ciprofloxacin (Cipro Tab*) 500 mg PO BID [facility] Last Admin: 05/13/17 09:04 Dose: 500 mg Dextrose (D50w Syringe 50 Ml*) 12.5 gm IV PUSH .FOR FS < 60 - SS PRN PRN Reason: FS < 60 Docusate Sodium (Colace Cap*) 100 mg PO DAILY PRN PRN Reason: CONSTIPATION Last Admin: 05/12/17 21:20 Dose: 100 mg Famotidine (Pepcid Tab*) 20 mg PO DAILY PRN PRN Reason: HEARTBURN Heparin Sodium (Porcine) (Heparin Vial(*)) 5,000 units SUBCUT Q8HR [facility] Last Admin: 05/13/17 13:22 Dose: 5,000 units Insulin Glargine (Lantus(*)) 84 units SUBCUT BEDTIME [facility] Last Admin: 05/12/17 21:21 Dose: 84 units Insulin Glargine (Lantus(*)) 35 units SUBCUT 0900 [facility] Last Admin: 05/13/17 09:05 Dose: 35 unit Insulin Human Lispro (Humalog*) 0 units SUBCUT AC [facility] PRN Reason: Protocol Last Admin: 05/13/17 13:20 Dose: 9 unit Insulin Human Lispro (Humalog*) 5 units SUBCUT AC [facility] Last Admin: 05/13/17 13:22 Dose: 5 unit Multivitamins/Minerals (Theragran/Minerals Tab*) 1 tab PO DAILY [facility] Last Admin: 05/13/17 09:04 Dose: 1 tab Omeprazole (Prilosec Cap*) 20 mg PO DAILY [facility] Last Admin: 05/13/17 09:04 Dose: 20 mg Ondansetron HCl (Zofran Inj*) 4 mg IV Q6H PRN PRN Reason: NAUSEA Senna (Senokot Tab*) 1 tab PO DAILY PRN PRN Reason: CONSTIPATION Tamsulosin HCl (Flomax Cap*) 0.4 mg PO DAILY [facility] Last Admin: 05/13/17 09:03 Dose: 0.4 mg Vital Signs - 8 hr 05/13/17 11:40 Temperature 98.4 F Pulse Rate 69 Respiratory 16 Rate Blood Pressure 117/67 (mmHg) O2 Sat by Pulse 95 Oximetry Oxygen Devices in Use Now: None Appearance: Patient is a 67yo male who appears stated age and is sitting in the bed in [facility]. Eyes: No Scleral Icterus, PERRLA Ears/Nose/Mouth/Throat: NL Teeth, Lips, Gums, Clear Oropharnyx, Mucous Membranes Moist Neck: NL Appearance and Movements; NL JVP, Trachea Midline Respiratory: Symmetrical Chest Expansion and Respiratory Effort, Clear to Auscultation Cardiovascular: NL Sounds; No Murmurs; No JVD, RRR, No Edema Abdominal: NL Sounds; No Tenderness; No Distention, No Hepatosplenomegaly Lymphatic: No Cervical Adenopathy Extremities: No Edema, No Clubbing, Cyanosis Skin: No Rash or Ulcers, No Nodules or Sclerosis Neurological: Alert and Oriented x 3, NL Sensation, NL Muscle Strength and Tone Result Diagrams: 05/13/17 04:49 05/13/17 12:24 Additional Lab and Data: . Microbiology and Other Data: . Assess/Plan/Problems-Billing Assessment: Mr. Hatfield is a 67 yo male with a PMH of NPH with SENSITIZED PAPER TESTER shunt, COSMO, DM, HTN who was admitted on 05/10/17 with UTI and weakness. Patient is much improved and is hoping to go to rehab. - Patient Problems (1) UTI (urinary tract infection) Current Visit: Yes Status: Acute Comment: UA with 3+ LE and 1+ bacteria. Patient with symptoms of dysuria. Urine culture negative. Plan to treat with 3 week course of cipro out of concern for prostatitis given signs of sepsis on admission and uncontrolled diabetes. (2) Diabetes Current Visit: No Status: Acute Code(s): E11.9 - TYPE 2 DIABETES MELLITUS WITHOUT COMPLICATIONS SNOMED Code(s): 07039278 Comment: BGs 194-400. Increase Lantus (50units am glargine 84 units pm glargine), continue standing lispro with lispro sliding scale with meals Patient reports that his blood sugar is much better controlled at home, ? if secondary in part to infection but his most recent HgbA1c was 10.3. Dr. Alvarez' s most recent progress note mentions that he has had low blood sugar at times which has prevented raising his lantus dosing. Fasting AM FSBG was 279 today. (3) Normal pressure hydrocephalus Current Visit: No Status: Acute Code(s): G91.2 - (IDIOPATHIC) NORMAL PRESSURE HYDROCEPHALUS SNOMED Code(s): 46620136 Comment: Appreciate neurosurgery consult. No evidence of SENSITIZED PAPER TESTER shunt dysfunction, patient's decline has been chronic, incontinence and memory issues are unchanged since shunt was placed in 2016. (4) S/P SENSITIZED PAPER TESTER shunt Current Visit: No Status: Acute Comment: Functioning properly per neurosurgery. (5) Sepsis Current Visit: No Status: Acute Priority: High Onset Date: 07/04/14 Comment: Resolved (6) CAD (coronary artery disease) Current Visit: No Status: Chronic Priority: Medium Code(s): I25.10 - ATHSCL HEART DISEASE OF [place] CORONARY ARTERY W/O ANG PCTRS SNOMED Code(s): 06077652 Comment: No S/S ACS Cont ASA, atenolol and atorvastatin. (7) GERD (gastroesophageal reflux disease) Current Visit: No Status: Chronic Code(s): K21.9 - GASTRO-ESOPHAGEAL REFLUX DISEASE WITHOUT ESOPHAGITIS SNOMED Code(s): 976640955 Comment: Continue omeprazole. (8) HLD (hyperlipidemia) Current Visit: No Status: Chronic Code(s): E78.5 - HYPERLIPIDEMIA, UNSPECIFIED SNOMED Code(s): 62456522 Comment: Continue atorvastatin. (9) HTN (hypertension) Current Visit: No Status: Chronic Code(s): I10 - ESSENTIAL (PRIMARY) HYPERTENSION SNOMED Code(s): 35940673 Comment: SBP 120-140s. Controlled with atenolol Lisinopril held due to hyperkalemia (10) DVT prophylaxis Current Visit: No Status: Acute Priority: Medium Onset Date: 07/04/14 Code(s): BFF9017 - SNOMED Code(s): 614068881 Comment: Heparin SQ. (11) Full code status Current Visit: No Status: Chronic Priority: Medium Onset Date: 07/04/14 Code(s): Z78.9 - OTHER SPECIFIED HEALTH STATUS SNOMED Code(s): 263590985 Status and Disposition: Inpatient. Bed offer from [facility], will discharge in AM.
[2017-05-13] MEDS: Atorvastatin* 10 MG TAB PO SCH (21:54)
[2017-05-13] MEDS: Insulin GLARGINE(*) 1 UNITS UNIT SUBCUT SCH (21:57)
[2017-05-14 05:03] LABS: Hematocrit 39 % (42-52); Hemoglobin 12.9 g/dl (14.0-18.0); Mean Corpuscular HGB Conc 33 g/dl (31-36); Mean Corpuscular Hemoglobin 28 pg (27-31); Mean Corpuscular Volume 86 fL (80-94); Mean Platelet Volume 9 um3 (7.4-10.4); Red Blood Count 4.56 10^6/ul (4.0-5.4); Red Cell Distribution Width 15 % (10.5-15); White Blood Count 10.7 10^3/ul (3.5-10.8)
[2017-05-14 05:17] LABS: BUN/Creatinine Ratio 18.5 (8-20); EGFR African American 87.2 (>60); EGFR Non-African American 67.8 (>60); Potassium 4.4 mmol/L (3.5-5.0)
[2017-05-14] MEDS: Heparin VIAL(*) 5000 UNITS/ML VIAL (FIVE THOUSAND) SUBCUT SCH (06:35)
[2017-05-14] MEDS ORDERED: Insulin GLARGINE(*) 1 UNITS UNIT SUBCUT SCH (09:00)
[2017-05-14] MEDS: Atenolol TAB* 25 MG PO SCH (09:03)
[2017-05-14] MEDS: Aspirin EC TAB* 325 MG PO SCH (09:03)
[2017-05-14] MEDS: Omeprazole CAP* 20 MG PO SCH (09:03)
[2017-05-14] MEDS: Tamsulosin CAP* 0.4 MG PO SCH (09:03)
[2017-05-14] MEDS: Ciprofloxacin TAB* 500 MG PO SCH (09:03)
[2017-05-14] MEDS: Multivitamins/Minerals TAB PO SCH (09:03)
[2017-05-14] MEDS: Insulin LISPRO* 1 UNITS UNIT SUBCUT SCH ×2 (09:04→09:07)
--- NOTE | 2017-05-14 12:25 | DS ---
CC: Dr. Stefani Alvarez * DATE OF ADMISSION: 05/09/2017. DATE OF DISCHARGE: 05/14/2017. PRIMARY CARE PHYSICIAN: Dr. Stefani Alvarez. MY ATTENDING WHILE IN THE HOSPITAL: Dr. Barbraa Gross * (dictated by YAKELIN Wing). PRIMARY DISCHARGE DIAGNOSES: 1. Urinary tract infection, presumed prostatitis. 2. Weakness due to deconditioning. SECONDARY DISCHARGE DIAGNOSES: 1. Normal pressure hydrocephalus. 2. Obstructive sleep apnea. 3. Peripheral edema. 4. Hypertension. 5. Hyperlipidemia. 6. Diabetes. 7. Asthma. 8. Benign prostatic hypertrophy. 9. Coronary artery disease. 10. GERD. 11. Chronic back pain. STUDIES DONE WHILE IN THE HOSPITAL: 1. Brain CT from 05/09/2017 read as no acute intracranial. Unchanged position of the right frontal shunt catheter and magnitude of lateral and third ventriculomegaly. Negative for significant mass effect. 2. EKG from 05/13/2017 read as normal sinus rhythm, rate 72, no ST changes, normal axis, no other abnormalities. MEDICATIONS AT DISCHARGE: 1. Simvastatin 10 mg p.o. at bedtime. 2. Metformin 2000 mg p.o. daily. 3. Atenolol 25 mg p.o. daily. 4. Omeprazole 20 mg one tab p.o. daily. 5. Multivitamin. 6. Flomax 0.4 mg p.o. daily. 7. Vitamin B12 500 mcg p.o. daily. 8. Ibuprofen 200 mg p.o. daily. 9. Blood glucose monitoring strips. 10. Albuterol inhaler ProAir RespiClick two puffs inhalation q.i.d. as needed. 11. Aspirin 325 mg p.o. daily. 12. Flonase two sprays both nares daily as needed. 13. Lisinopril 10 mg one tab p.o. daily. 14. Tylenol 625 mg p.o. q.6 hours as needed. 15. Ciprofloxacin 500 mg p.o. b.i.d. 16. Colace 100 mg p.o. daily as needed. 17. Insulin Glargine 45 units subcutaneous 0900. 18. Insulin Glargine 84 units subcutaneous at bedtime. 19. Insulin Lispro 10 units subcutaneous a.c. 20. Senokot one tab p.o. daily as needed. New medications at discharge: Ciprofloxacin, Docusate, insulin Glargine, insulin Lispro, Senokot. Medications discontinued at discharge: Humalog, Famotidine, insulin Glargine 74 units subcutaneous at bedtime, Glipizide two tabs p.o. daily. HOSPITAL COURSE: This is a brief summary to the patient's presentation. For more details, please see the history and physical from Noam Schuster NP on 12/2016. In brief, the patient is a 67-year-old male with a past medical history for the above who presented with pain with urination and a steady decline in his functional status with increased weakness over the past three days. The patient had a white blood cell count of 1200 and a heart rate of 90. He was admitted for complicated urinary tract infection with systemic symptoms. The patient was placed on Ceftriaxone for two days to begin. The patient improved on the first day. A Neurosurgery consult was obtained to assess the patency of his shunt. Per the consultation report from YAKELIN Coburn on 05/11/2017, the patient's shunt is functioning properly and not likely the cause of his weakness, and recommended physical and occupational therapy. The patient had a previous episode of weakness after his surgery for NPH from which he recovered well with physical and occupational therapy and subacute rehab. The patient improved greatly with regards to his urinary tract infection , having no dysuria. On day three of his hospitalization, the patient was switched from Ceftriaxone to Ciprofloxacin 500 mg p.o. b.i.d. on 05/10/2017. The patient worked with physical therapy and occupational therapy and was identified to have needs needing subacute rehab. The patient's white blood cell count declined from 12.5 to 9.4 and then stayed at approximately 10.5 for the rest of his hospitalization. The patient's creatinine was at 1.14 initially and reached a high of 1.23, but essentially at baseline for the duration of his hospitalization. The patient's blood sugars were uncontrolled likely due to his acute illness throughout his entire hospitalization with his low being 194 on the morning of May 12 and his high being 410 on the evening of May 13. The patient's Glargine insulin was increased twice during his hospitalization to the current dosages at which he is still elevated. The patient was treated with sliding scale insulin and received 30 units on the day of 05/13/2017. The patient also received 15 units of standing insulin subcutaneous on 05/13/2017 with meals. The patient was amenable and very excited for discharge and will be discharged to [facility] on . The patient had hyperkalemia up to 5.1 on 05/13/2017 which resolved without intervention. PHYSICAL EXAMINATION ON THE DAY OF DISCHARGE: General: The patient is a 67- year- old male who appears his stated age, sitting comfortable in the bed in no acute distress. Vital Signs on the day of discharge: Temperature 97.5, pulse rate 69, respiratory rate 16, oxygen saturation 94 percent on room air, blood pressure 146/71. HEENT: Head normocephalic, atraumatic. Sclerae anicteric. No conjunctival injection. Nasal mucosa moist, no discharge. No pharyngeal erythema. Oral mucosa moist. Neck: Supple, nontender, no lymphadenopathy, no carotid bruit auscultated. Cardiac: Regular rate and rhythm. No clicks, murmurs, gallops or rubs. Pulses 2+ in bilateral dorsalis pedis, posterior tibialis and radial areas. There is stable 2+ pitting edema in the bilateral lower extremity which the patient states is at baseline for him. Respiratory: Clear to auscultation bilaterally. No wheezes, rales or rhonchi. Good air exchange bilaterally. Abdomen: Obese, distended, nontender. Bowel sounds present. Normoactive in all four quadrants. No hepatosplenomegaly. No abdominal bruits auscultated. Genitourinary: No suprapubic tenderness, no CVA tenderness. Skin: Clean, dry, intact, no rash. Neuro: Cranial nerves II through XII. Alert and oriented times three. No focal deficits. The patient has 4/5 strength throughout with good effort and no asymmetry. Psychiatric: The patient is pleasant and cooperative. LABORATORY DATA ON THE DAY OF DISCHARGE: White blood cell count 10.7, hemoglobin 12.9, platelet count 322; sodium 135, potassium 4.4, chloride 101, creatinine 1.08, glucose 216, calcium 9.0. DISCHARGE PLAN: The patient will be discharged to subacute rehab for PT and OT services and scientologist of his functional status. The patient will be treated presumptively for prostatitis due to the systemic symptoms accompanying his UTI for a total of three weeks, ending on 05/29/2017 in the evening. The patient should return to the hospital for systemic symptoms of infection, such as fever not responsive to Tylenol, uncontrolled chills or other alarming symptoms. The patient's shunt is functioning properly and it not likely the etiology of his weakness. The patient should take his insulin as prescribed and be monitored for hypoglycemia after the acute phase of his illness has passed and should have his long-acting insulin increased as needed for hyperglycemia. ACTIVITY: The patient should engage in activity as tolerated. The patient currently uses an EasyStand lift. The patient should be engaged in rehab with a goal of returning home. DIET: The patient should have a consistent carbohydrate diet. TIME SPENT: Approximately 60 minutes were spent on this discharge, 30 of which were spent [id number] with patient obtaining history and physical and discussing treatment plan. YAKELIN WING [id number]/CPS #: [id number]
[2017-05-14 12:36] VITALS: BP 139/69
== END 2017-05-14 12:25 | DRG 872 ==
LOC: ED 17:06 → SSU 21:35
PROVIDERS: ADMIT Hospitalist; ATTEND Internal Medicine
DX: A41.9 Sepsis, unspecified organism (principal); G91.2 (Idiopathic) normal pressure hydrocephalus; E11.65 Type 2 diabetes mellitus with hyperglycemia; I11.9 Hypertensive heart disease without heart failure; N39.0 Urinary tract infection, site not specified; N41.9 Inflammatory disease of prostate, unspecified; G47.33 Obstructive sleep apnea (adult) (pediatric); I25.10 Atherosclerotic heart disease of native coronary artery without angina pectoris; E78.5 Hyperlipidemia, unspecified; J45.909 Unspecified asthma, uncomplicated; N40.0 Benign prostatic hyperplasia without lower urinary tract symptoms; K21.9 Gastro-esophageal reflux disease without esophagitis; G89.29 Other chronic pain; E87.5 Hyperkalemia; Z98.2 Presence of cerebrospinal fluid drainage device; E66.9 Obesity, unspecified; Z68.36 Body mass index [BMI] 36.0-36.9, adult; Z79.84 Long term (current) use of oral hypoglycemic drugs; Z79.1 Long term (current) use of non-steroidal anti-inflammatories (NSAID); Z79.82 Long term (current) use of aspirin; Z79.4 Long term (current) use of insulin; Z79.899 Other long term (current) drug therapy; Z91.013 Allergy to seafood; Z82.49 Family history of ischemic heart disease and other diseases of the circulatory system
CPT/HCPCS: 36415; 70450; 80048; 80053; 81003; 81015; 82947; 83605; 85025; 85610; 85730; 87040; 87086; 93005; A9270-GY; J0696; J1644

== ENCOUNTER 2021-06-02 09:12 | Inpatient (IN) ==
[2021-06-02 09:30] LABS: PCO2 Arterial 67 mmHg (35-45); PO2 Arterial 72 mmHg (80-100)
[2021-06-02] MEDS ORDERED: Etomidate 40 mg/20 ml (2 MG/ML) 20 ml VIAL (40 mg) ONE (09:32)
[2021-06-02] MEDS ORDERED: Rocuronium 50 mg VIAL 10 mg/ml 5 ml VIAL (50 mg) ONE ×2 (09:33→10:46)
[2021-06-02 10:13] LABS: Urine Appearance Cloudy; Urine Bilirubin Negative (Negative); Urine Blood Negative (Negative); Urine Color Yellow; Urine Glucose Negative (Negative); Urine Ketones Negative (Negative); Urine Nitrite Negative (Negative); Urine Protein 2+(100 mg/dL) (Negative); Urine Specific Gravity 1.014 (1.002-1.030); Urine Urobilinogen Negative (Negative)
[2021-06-02 10:17] LABS: ABS Lymphocytes 1.7 10^3/ul (1.0-4.8); ABS Monocytes 0.7 10^3/ul (0-0.8); Eosinophil % 0.3 %; Hematocrit 39 % (42-52); Hemoglobin 12.4 g/dL (14.0-18.0); Lymphocyte % 12.5 %; Mean Corpuscular HGB Conc 32 g/dL (31-36); Mean Corpuscular Hemoglobin 28 pg (27-31); Mean Corpuscular Volume 88 fL (80-94); Mean Platelet Volume 8.2 fL (7.4-10.4); Platelet Count 328 10^3/uL (150-450); Red Blood Count 4.48 10^6 /uL (4.18-5.48); Red Cell Distribution Width 16 % (10-15); White Blood Count 13.5 10^3/uL (3.5-10.8)
[2021-06-02 10:30] LABS: Activated Partial Thrombo Time 32.4 seconds (26.0-38.0); Albumin 3.4 g/dL (3.2-5.2); Albumin/Globulin Ratio 1.1 (1-3); C Reactive Protein 16.92 mg/L (<8.01); Calcium 8.7 mg/dL (8.6-10.3); Globulin 3.2 g/dL (2-4); INR 1.03 (0.86-1.15); Total Bilirubin 0.2 mg/dL (0.2-1.0); Total Protein 6.6 g/dL (6.4-8.9); eGFR CKD-EPI 48.9 (>60)
[2021-06-02 10:32] LABS: Troponin I 0.01 ng/mL (<0.03)
[2021-06-02] MEDS ORDERED: Propofol 10 mg/ml 100 ML BTL 100 ML ONE ×3 (10:46→15:58)
[2021-06-02] MEDS ORDERED: Succinylcholine 200 mg VIAL 20 mg/ml 10 ml VIAL (200 mg) ONE (10:47)
[2021-06-02 10:52] LABS: Potassium 5.1 mmol/L (3.5-5.0)
[2021-06-02 11:10] LABS: Urine Bacteria 1+ (Absent); Urine Red Blood Cell Trace(0-2/hpf) (Absent); Urine White Blood Cell Trace(0-5/hpf) (Absent)
[2021-06-02] MEDS ORDERED: Iodixanol (CONTRAST) 320 MG/ML 100 ML SDV IV ONE (12:01)
[2021-06-02] MEDS ORDERED: Vancomycin 1,000 MG in NS 0.9% 250 ml 250 ML IVPB ONE (12:15)
[2021-06-02] MEDS ORDERED: Cefepime 1 GM in Dextrose 1 GM/50 ML BAG IV ONE (12:15)
[2021-06-02] MEDS ORDERED: Piperacillin/Tazobac ADVAN 3.375 GM in NS 0.9% 100 ml BAG 100 ML IV ONE (14:22)
[2021-06-02] MEDS ORDERED: Zosyn per Pharmacy NOTE FOLLOW UP SCH (15:00)
[2021-06-02] MEDS ORDERED: Vancomycin per Pharmacy 1 EA NOTE FOLLOW UP SCH (15:00)
[2021-06-02 15:14] LABS: Prolactin 66.5 ng/mL (1.0-20.0)
[2021-06-02] MEDS: Heparin 5000 UNITS/ML 1 mL VIAL SUBCUT SCH (16:17)
[2021-06-02] MEDS: Propofol 10 mg/ml 100 ML BTL 100 ML IV SCH ×2 (16:17→19:54)
[2021-06-02] MEDS: Chlorhexidine MOUTHWASH 0.12% 15 ML UDC TOPICAL SCH ×2 (16:17→19:27)
[2021-06-02] MEDS: Lactated Ringers 1000 ml BAG 1,000 ML IV SCH (16:30)
[2021-06-02 17:14] LABS: Urine Benzodiazepine Screen None Detected (None Detect); Urine Cannabinoids Screen None Detected (None Detect); Urine Opiates Screen None Detected (None Detect)
[2021-06-02 17:22] LABS: Calcium 8.4 mg/dL (8.6-10.3); Magnesium 2.1 mg/dL (1.9-2.7); Phosphorus 1.4 mg/dL (2.5-5.0); eGFR CKD-EPI 52.6 (>60)
[2021-06-02] MEDS ORDERED: Propofol 10 MG/ML 20 ML BTL ONE (19:03)
[2021-06-02] MEDS: ZOSYN 3.375 GM Q8H per EXTENDED INFUSION IV SCH (20:37)
[2021-06-02] MEDS: Potassium & Sodium Phos 250 mg = 1 PACKET PO SCH (20:39)
[2021-06-02] MEDS: Famotidine IV 10 MG/ML 2 ml VIAL (20 mg) IV SLOW PU SCH (20:39)
[2021-06-02] MEDS: Vancomycin 1000 MG in NS 0.9% 250 ML IVPB SCH (22:49)
[2021-06-03] MEDS: Propofol 10 mg/ml 100 ML BTL 100 ML IV SCH ×2 (00:23→04:48)
[2021-06-03] MEDS: Chlorhexidine MOUTHWASH 0.12% 15 ML UDC TOPICAL SCH ×3 (00:28→08:07)
[2021-06-03] MEDS: Heparin 5000 UNITS/ML 1 mL VIAL SUBCUT SCH ×2 (03:35→15:10)
[2021-06-03] MEDS: ZOSYN 3.375 GM Q8H per EXTENDED INFUSION IV SCH ×3 (05:26→20:20)
[2021-06-03 05:46] LABS: Hematocrit 35 % (42-52); Hemoglobin 11.8 g/dL (14.0-18.0); Mean Corpuscular HGB Conc 33 g/dL (31-36); Mean Corpuscular Hemoglobin 28 pg (27-31); Mean Corpuscular Volume 85 fL (80-94); Mean Platelet Volume 7.8 fL (7.4-10.4); Platelet Count 286 10^3/uL (150-450); Red Blood Count 4.16 10^6 /uL (4.18-5.48); Red Cell Distribution Width 15 % (10-15)
[2021-06-03] MEDS: Lactated Ringers 1000 ml BAG 1,000 ML IV SCH (05:51)
[2021-06-03 06:03] LABS: INR 1.14 (0.86-1.15)
[2021-06-03 06:31] LABS: Potassium 4.1 mmol/L (3.5-5.0)
[2021-06-03 06:32] LABS: Albumin 3.2 g/dL (3.2-5.2); Albumin/Globulin Ratio 1.1 (1-3); Calcium 8.6 mg/dL (8.6-10.3); Globulin 2.9 g/dL (2-4); Magnesium 1.8 mg/dL (1.9-2.7); Phosphorus 1.7 mg/dL (2.5-5.0); Total Bilirubin 0.5 mg/dL (0.2-1.0); Total Protein 6.1 g/dL (6.4-8.9); eGFR CKD-EPI 44.2 (>60)
[2021-06-03] MEDS ORDERED: Magnesium Sulfate IV 3 GM in NS 0.9% 100 ml BAG 100 ML IVPB ONE (07:39)
[2021-06-03] MEDS ORDERED: Potassium Phosphate IV 15 MMOLE in NS 0.9% 250 ml 250 ML IVPB ONE (08:01)
[2021-06-03] MEDS: Potassium & Sodium Phos 250 mg = 1 PACKET PO SCH (08:07)
[2021-06-03] MEDS: Famotidine IV 10 MG/ML 2 ml VIAL (20 mg) IV SLOW PU SCH ×2 (08:07→20:21)
[2021-06-03] MEDS: Vancomycin 1000 MG in NS 0.9% 250 ML IVPB SCH (09:01)
[2021-06-03] MEDS ORDERED: Albuterol/Ipratropium NEB.SOL (2.5/0.5 MG) 3 ML NEB.SOLN INH PRN (11:09)
[2021-06-03] MEDS: methylPREDNISolone SOD 40 mg/ml 1 ml VIAL IV SCH (12:10)
[2021-06-03 12:41] LABS: PCO2 Arterial 49 mmHg (35-45); PO2 Arterial 105 mmHg (80-100)
[2021-06-03] MEDS ORDERED: Furosemide 20 mg/2 ml IV VIAL IV SLOW PU ONE (14:52)
[2021-06-04] MEDS: ZOSYN 3.375 GM Q8H per EXTENDED INFUSION IV SCH (04:59)
[2021-06-04] MEDS: Heparin 5000 UNITS/ML 1 mL VIAL SUBCUT SCH ×2 (04:59→15:09)
[2021-06-04 05:17] LABS: Hematocrit 37 % (42-52); Hemoglobin 11.8 g/dL (14.0-18.0); Mean Corpuscular HGB Conc 32 g/dL (31-36); Mean Corpuscular Hemoglobin 28 pg (27-31); Mean Corpuscular Volume 86 fL (80-94); Mean Platelet Volume 7.9 fL (7.4-10.4); Platelet Count 320 10^3/uL (150-450); Red Blood Count 4.27 10^6 /uL (4.18-5.48); Red Cell Distribution Width 15 % (10-15); White Blood Count 12.8 10^3/uL (3.5-10.8)
[2021-06-04 05:31] LABS: Calcium 8.5 mg/dL (8.6-10.3); Magnesium 2.3 mg/dL (1.9-2.7); Potassium 4.3 mmol/L (3.5-5.0); eGFR CKD-EPI 42.3 (>60)
[2021-06-04] MEDS: Famotidine IV 10 MG/ML 2 ml VIAL (20 mg) IV SLOW PU SCH ×2 (10:21→20:17)
[2021-06-04] MEDS: methylPREDNISolone SOD 40 mg/ml 1 ml VIAL IV SCH (10:22)
[2021-06-04] MEDS ORDERED: Vancomycin Trough Check NOTE FOLLOW UP ONE (10:30)
[2021-06-04] MEDS: Mometasone/Formoter 200/5 MDI INH SCH ×2 (11:13→19:58)
[2021-06-04] MEDS ORDERED: Dextrose 50% Syringe 50 ml 25 GM/50 ML SYRINGE IV PUSH PRN (12:33)
[2021-06-04] MEDS ORDERED: Furosemide 20 mg/2 ml IV VIAL IV SLOW PU ONE (14:43)
[2021-06-05] MEDS: Heparin 5000 UNITS/ML 1 mL VIAL SUBCUT SCH ×2 (03:07→15:21)
[2021-06-05 06:34] LABS: Calcium 8.2 mg/dL (8.6-10.3); Phosphorus 3.5 mg/dL (2.5-5.0); Potassium 4.1 mmol/L (3.5-5.0); eGFR CKD-EPI 47.7 (>60)
[2021-06-05] MEDS: Mometasone/Formoter 200/5 MDI INH SCH ×2 (08:20→21:22)
[2021-06-05] MEDS: methylPREDNISolone SOD 40 mg/ml 1 ml VIAL IV SCH (09:06)
[2021-06-05] MEDS: Famotidine IV 10 MG/ML 2 ml VIAL (20 mg) IV SLOW PU SCH ×2 (09:06→23:28)
[2021-06-05 12:40] LABS: Adenovirus Undetected (Undetected); Bordetella parapertussis Undetected (Undetected); Bordetella pertussis Undetected (Undetected); Chlamydophila pneumoniae Undetected (Undetected); Coronavirus 229E Undetected (Undetected); Coronavirus HKU1 Undetected (Undetected); Coronavirus NL63 Undetected (Undetected); Coronavirus OC43 Undetected (Undetected); Human Metapneumovirus Undetected (Undetected); Human Rhinovirus/Enterovirus Undetected (Undetected); Influenza A Undetected (Undetected); Influenza B Undetected (Undetected); Mycoplasmoides pneumoniae Undetected (Undetected); Parainfluenza Virus 1 Undetected (Undetected); Parainfluenza Virus 2 Undetected (Undetected); Parainfluenza Virus 3 Undetected (Undetected); Parainfluenza Virus 4 Undetected (Undetected); Respiratory Syncytial Virus Undetected (Undetected); Specimen Source NASOPHARYNGEAL SWAB
[2021-06-05 17:11] LABS: Glucose Confirmatory 450 mg/dL (70-100)
[2021-06-05] MEDS: Insulin GLARGINE 100 un/ml 10 ml VIAL SUBCUT SCH (23:29)
[2021-06-06] MEDS: Heparin 5000 UNITS/ML 1 mL VIAL SUBCUT SCH (04:39)
[2021-06-06] MEDS: Mometasone/Formoter 200/5 MDI INH SCH (08:53)
[2021-06-06] MEDS: methylPREDNISolone SOD 40 mg/ml 1 ml VIAL IV SCH (09:06)
[2021-06-06] MEDS: Famotidine IV 10 MG/ML 2 ml VIAL (20 mg) IV SLOW PU SCH (09:06)
[2021-06-06] MEDS: Insulin GLARGINE 100 un/ml 10 ml VIAL SUBCUT SCH (09:07)
[2021-06-06 11:46] VITALS: BP 142/72
[2021-06-06 13:05] LABS: Urine Appearance Clear; Urine Bilirubin Negative (Negative); Urine Blood Negative (Negative); Urine Color Yellow; Urine Glucose 2+(150 mg/dL) (Negative); Urine Ketones Negative (Negative); Urine Nitrite Negative (Negative); Urine Protein 1+(30 mg/dL) (Negative); Urine Specific Gravity 1.018 (1.002-1.030); Urine Urobilinogen Negative (Negative)
[2021-06-06 13:19] LABS: Urine Bacteria Absent (Absent); Urine Red Blood Cell Absent (Absent); Urine Squamous Epithelial Cell Present (Absent); Urine White Blood Cell Trace(0-5/hpf) (Absent)
== END 2021-06-06 14:35 | DRG 167 ==
LOC: ED 09:12 → ICU 14:13 → SUATTDRO 14:13 → ICU 15:30 → MED 06-04 12:46
PROVIDERS: ADMIT Internal Medicine; ATTEND Hospitalist

== ENCOUNTER 2023-01-13 14:09 | Inpatient (IN) ==
[2023-01-13] MEDS ORDERED: NS 0.9% 1000 ml BAG 1,000 ML IV ONE ×2 (14:22→16:25)
[2023-01-13 14:38] LABS: Hematocrit 45.5 % (38-53); Hemoglobin 14.4 g/dL (13.2-16.3); Mean Corpuscular Hemoglobin 27.9 pg (27-33); Mean Corpuscular Hgb Conc 31.5 g/dL (31-36); Mean Corpuscular Volume 88.5 fL (80-97); Mean Platelet Volume 8.5 fL (7.5-11.2); Platelet Count 413 10^3/uL (150-450); Red Blood Count 5.15 10^6/uL (4.06-5.63); Red Cell Distribution Width 16.9 % (12-17); White Blood Count 15.2 10^3/uL (3.6-10.2)
[2023-01-13 14:44] LABS: Venous Bicarbonate HCO3 17.7 mmol/L (24-28)
[2023-01-13 14:54] LABS: Albumin/Globulin Ratio 1.1 (1-3); Calcium 8.1 mg/dL (8.6-10.3); Creatinine, Serum 2.86 mg/dL (0.67-1.17); Globulin 3.8 g/dL (2-4); Magnesium 1.9 mg/dL (1.9-2.7); Total Bilirubin 0.2 mg/dL (0.2-1.0); Total Protein 7.8 g/dL (6.4-8.9); eGFR CKD-EPI 22.4 (>60)
[2023-01-13 15:02] LABS: Potassium 8.5 mmol/L (3.5-5.0)
[2023-01-13] MEDS ORDERED: Dextrose 50% Syringe 50 ml 25 GM/50 ML SYRINGE IV PUSH ONE ×4 (15:06→16:51)
[2023-01-13] MEDS ORDERED: Calcium Gluconate 2 GM in NS 0.9% 100 ml BAG 100 ML IVPB ONE ×2 (15:07→17:00)
[2023-01-13 15:09] LABS: Urine Appearance Cloudy; Urine Bilirubin Negative (Negative); Urine Blood 1+ (Negative); Urine Color Yellow; Urine Glucose Negative (Negative); Urine Ketones Negative (Negative); Urine Nitrite Negative (Negative); Urine Protein 2+(100 mg/dL) (Negative); Urine Specific Gravity 1.013 (1.002-1.030); Urine Urobilinogen Negative (Negative)
[2023-01-13 15:20] LABS: ABS Basophils 0.1 10^3/uL (0.0-0.1); ABS Lymphocytes 1.2 10^3/uL (1.0-4.8); ABS Monocytes 0.7 10^3/uL (0.0-1.1); ABS Neutrophils 13.2 10^3/uL (1.5-7.6); ABS Nucleated RBC 0.01 10^3/ul; Eosinophil % 0.1 %; Nucleated Red Blood Cells % 0.1 /100 WBC (0.0-0.4)
[2023-01-13 15:25] LABS: Urine Bacteria 1+ (Absent); Urine Red Blood Cell 1+(3-5/hpf) (Absent); Urine Squamous Epithelial Cell Present (Absent); Urine White Blood Cell 2+(11-20/hpf) (Absent)
[2023-01-13] MEDS ORDERED: Piperacillin/Tazobac 3.375 BAG 3.375 GM/100 ML BAG IV ONE (15:32)
[2023-01-13] MEDS ORDERED: Sodium Bicarbonate 8.4% SYR 50 ml SYRINGE ONE ×3 (15:39→17:46)
[2023-01-13] MEDS ORDERED: Rocuronium 50 mg VIAL 10 mg/ml 5 ml VIAL (50 mg) ONE ×3 (15:40→17:59)
[2023-01-13] MEDS ORDERED: Sodium Polystyrene ORAL.SUSP 15 GM/60 ML BTL PO ONE (15:41)
[2023-01-13] MEDS: Calcium CHLORIDE 10% SYRINGE 1 GM/10 ML IV ONE ×4 (15:44→16:14)
[2023-01-13] MEDS: Sodium Bicarbonate 8.4% SYR 50 ml SYRINGE IV ONE ×3 (15:45→16:55)
[2023-01-13] MEDS ORDERED: Midazolam 5 mg/ml concentrated 5 mg/ml 1 ml VIAL ONE (15:47)
[2023-01-13] MEDS ORDERED: Calcium CHLORIDE 10% SYRINGE 1 GM/10 ML ONE ×3 (15:50→16:12)
[2023-01-13] MEDS ORDERED: Norepinephrine 16MCG/ML BAGD5W 4,000 MCG/250 ML BAG IV ONE (15:56)
[2023-01-13] MEDS: Norepinephrine 16MCG/ML BAGD5W 4,000 MCG/250 ML BAG IV SCH ×2 (16:00→22:00)
[2023-01-13 16:05] LABS: Potassium Redraw 7.9 mmol/L (3.5-5.0)
[2023-01-13] MEDS ORDERED: Dextrose 50% Syringe 50 ml 25 GM/50 ML SYRINGE ONE (16:09)
[2023-01-13] MEDS ORDERED: Albuterol 2.5mg/3 ml (0.083%) NEB.SOLN INH ONE ×3 (16:13→17:19)
[2023-01-13] MEDS ORDERED: Furosemide 40 mg/4 ml IV VIAL ONE (16:16)
[2023-01-13] MEDS ORDERED: Propofol 10 mg/ml 100 ML BTL 1,000 MG/100 ML BTL ONE (16:23)
[2023-01-13] MEDS: Propofol 10 mg/ml 100 ML BTL 1,000 MG/100 ML BTL IV SCH ×2 (16:31→22:05)
[2023-01-13] MEDS ORDERED: Midazolam 10 mg/10 ml VIAL 1 mg/ml 10 ml VIAL (10 mg) ONE (16:34)
[2023-01-13] MEDS ORDERED: fentaNYL 100 mcg/2 ml 50 MCG/ML VIAL ONE ×2 (16:35→17:52)
[2023-01-13] MEDS ORDERED: Sodium Bicarbonate 8.4% VIAL 1 MEQ/ML 50 ml VIAL (50 meq) IV ONE ×2 (16:52)
[2023-01-13] MEDS ORDERED: NS 0.9% 1000 ml BAG 200 ML IV PRN (16:52)
[2023-01-13] MEDS ORDERED: Albumin Human 25% 25 GM/100 ML BTL IV PRN (16:52)
[2023-01-13] MEDS ORDERED: NS 0.9% 1000 ml BAG 100 ML IV PRN (16:52)
[2023-01-13] MEDS ORDERED: Furosemide 40 mg/4 ml IV VIAL IV ONE (16:58)
[2023-01-13] MEDS ORDERED: fentaNYL INFUSION 50 mcg/mL VL 2,500 MCG/50 ML VIAL IV SCH (17:00)
[2023-01-13] MEDS ORDERED: fentaNYL 100 mcg/2 ml 50 MCG/ML VIAL IV SLOW PU PRN (17:20)
[2023-01-13] MEDS ORDERED: fentaNYL 100 mcg/2 ml 50 MCG/ML VIAL IV SLOW PU ONE (17:30)
[2023-01-13 17:32] LABS: Venous Bicarbonate HCO3 6.1 mmol/L (24-28)
[2023-01-13 17:39] LABS: Calcium 12.1 mg/dL (8.6-10.3); Creatinine, Serum 2.71 mg/dL (0.67-1.17); eGFR CKD-EPI 23.9 (>60)
[2023-01-13 17:44] LABS: INR 1.23 (0.88-1.18)
[2023-01-13] MEDS ORDERED: Midazolam 2 mg/2 ml VIAL 1 mg/ml 2 ml VIAL (2 mg) ONE (17:52)
[2023-01-13] MEDS ORDERED: Rocuronium 50 mg VIAL 10 mg/ml 5 ml VIAL (50 mg) IV ONE (17:59)
[2023-01-13] MEDS: Heparin 1,000 UNIT/ML 10 ml (10,000 UNITS) CATHLAB/DIALYSIS DIALYSIS PRN ×5 (18:14→22:35)
[2023-01-13 18:22] LABS: Calcium 13.3 mg/dL (8.6-10.3); Potassium 6.2 mmol/L (3.5-5.0)
[2023-01-13] MEDS ORDERED: Midazolam 2 mg/2 ml VIAL 1 mg/ml 2 ml VIAL (2 mg) IV SLOW PU ONE (18:24)
[2023-01-13 18:26] LABS: Creatinine, Serum 2.65 mg/dL (0.67-1.17); eGFR CKD-EPI 24.5 (>60)
[2023-01-13] MEDS ORDERED: Dextrose 50% Syringe 50 ml 25 GM/50 ML SYRINGE IV PUSH PRN (18:35)
[2023-01-13] MEDS ORDERED: Vancomycin per Pharmacy 1 EA NOTE FOLLOW UP PRN (18:41)
[2023-01-13] MEDS ORDERED: Clindamycin 900 MG/50 **NS BAG 900 MG/50 ML BAG IVPB ONE (19:00)
[2023-01-13] MEDS ORDERED: Vancomycin 1,750 MG in NS 0.9% 500 ml BAG 500 ML IVPB ONE (19:00)
[2023-01-13] MEDS ORDERED: Vancomycin 1,750 MG in NS 0.9% 250 ml 250 ML IVPB SCH (19:00)
[2023-01-13] MEDS: metroNIDAZOLE IV 500 MG/100ML 500 MG/100 ML BAG IVPB SCH (20:19)
[2023-01-13] MEDS: Chlorhexidine MOUTHWASH 0.12% 15 ML UDC SWISH SPIT SCH ×2 (20:30→23:27)
[2023-01-13] MEDS: Pantoprazole VIAL 40 MG VIAL IV SCH (20:36)
[2023-01-13] MEDS ORDERED: Cefepime 2 GM in Dextrose 2 GM/50 ML BAG IV SCH (21:00)
[2023-01-13 21:02] LABS: Urine Appearance Cloudy; Urine Bilirubin Negative (Negative); Urine Blood 3+ (Negative); Urine Color Yellow; Urine Glucose 1+(50 mg/dL) (Negative); Urine Ketones Negative (Negative); Urine Nitrite Negative (Negative); Urine Protein 2+(100 mg/dL) (Negative); Urine Urobilinogen Negative (Negative)
[2023-01-13 21:07] LABS: Urine Bacteria Absent (Absent); Urine Red Blood Cell 3+(>10/hpf) (Absent); Urine Squamous Epithelial Cell Present (Absent); Urine White Blood Cell 2+(11-20/hpf) (Absent)
[2023-01-13] MEDS ORDERED: Albuterol (2.5 MG) 0.5 % CONC 0.5 ML NEB.SOLN INH PRN (21:20)
[2023-01-13 21:27] LABS: Hepatitis B Surface Antigen Nonreactive (Nonreactive)
[2023-01-13 21:32] LABS: Hepatitis A Ab IgM Negative (Negative); Hepatitis B Core IgM Nonreactive (Nonreactive)
[2023-01-13 21:42] LABS: Phosphorus 6.2 mg/dL (2.5-5.0)
[2023-01-13 21:44] LABS: Hepatitis C Antibody Negative (Negative)
[2023-01-13] MEDS: Heparin DRIP 25,000 UNITS BAG 25,000 UNITS/500 ML BAG IV SCH (21:49)
[2023-01-13] MEDS: Heparin 5000 UNITS/ML 1 mL VIAL IV SCH (21:49)
[2023-01-13] MEDS ORDERED: Heparin 5000 UNITS/ML 1 mL VIAL SUBCUT SCH (22:00)
[2023-01-13] MEDS ORDERED: Albuterol/Ipratropium NEB.SOL (2.5/0.5 MG) 3 ML NEB.SOLN INH SCH (22:00)
[2023-01-13] MEDS: Budesonide NEB 0.5 MG/2 ML NEB.SOLN INH SCH (22:31)
[2023-01-13] MEDS: fentaNYL INFUSION 50 mcg/mL VL 2,500 MCG/50 ML VIAL IV SCH (23:48)
[2023-01-14 01:02] LABS: Venous Bicarbonate HCO3 21.2 mmol/L (24-28)
[2023-01-14] MEDS: Propofol 10 mg/ml 100 ML BTL 1,000 MG/100 ML BTL IV SCH ×5 (01:08→22:34)
[2023-01-14] MEDS: Norepinephrine 16MCG/ML BAGD5W 4,000 MCG/250 ML BAG IV SCH ×4 (01:30→23:33)
[2023-01-14] MEDS: metroNIDAZOLE IV 500 MG/100ML 500 MG/100 ML BAG IVPB SCH ×2 (01:42→08:06)
[2023-01-14] MEDS: Chlorhexidine MOUTHWASH 0.12% 15 ML UDC SWISH SPIT SCH ×6 (01:49→21:08)
[2023-01-14] MEDS ORDERED: Clindamycin 600 MG/NS BAG(*) 600 MG/50 ML BAG IV SCH (03:30)
[2023-01-14 04:43] LABS: Venous Bicarbonate HCO3 21.5 mmol/L (24-28)
[2023-01-14 04:44] LABS: Hematocrit 37.5 % (38-53); Hemoglobin 12.4 g/dL (13.2-16.3); Mean Corpuscular Hemoglobin 28.2 pg (27-33); Mean Corpuscular Hgb Conc 33.2 g/dL (31-36); Mean Corpuscular Volume 85.1 fL (80-97); Mean Platelet Volume 8.1 fL (7.5-11.2); Platelet Count 278 10^3/uL (150-450); Red Blood Count 4.41 10^6/uL (4.06-5.63); White Blood Count 22.8 10^3/uL (3.6-10.2)
[2023-01-14] MEDS: fentaNYL INFUSION 50 mcg/mL VL 2,500 MCG/50 ML VIAL IV SCH (04:47)
[2023-01-14 05:02] LABS: ABS Basophils 0.1 10^3/uL (0.0-0.1); ABS Eosinophils 0.1 10^3/uL (0.0-0.5); ABS Lymphocytes 1.7 10^3/uL (1.0-4.8); ABS Monocytes 1.5 10^3/uL (0.0-1.1); ABS Neutrophils 19.3 10^3/uL (1.5-7.6); ABS Nucleated RBC 0.01 10^3/ul; Eosinophil % 0.2 %; Lymphocyte % 7.4 %; Nucleated Red Blood Cells % 0.1 /100 WBC (0.0-0.4)
[2023-01-14 05:03] LABS: Calcium 8.5 mg/dL (8.6-10.3); Creatinine, Serum 2.49 mg/dL (0.67-1.17); Potassium 4.9 mmol/L (3.5-5.0); eGFR CKD-EPI 26.4 (>60)
[2023-01-14 07:32] LABS: Magnesium 1.4 mg/dL (1.9-2.7); Phosphorus 4.3 mg/dL (2.5-5.0)
[2023-01-14] MEDS: Budesonide NEB 0.5 MG/2 ML NEB.SOLN INH SCH ×2 (07:47→19:14)
[2023-01-14] MEDS: Albuterol/Ipratropium NEB.SOL (2.5/0.5 MG) 3 ML NEB.SOLN INH SCH ×3 (07:47→19:14)
[2023-01-14] MEDS ORDERED: Zosyn per Pharmacy NOTE FOLLOW UP SCH (09:00)
[2023-01-14] MEDS ORDERED: Piperacillin/Tazobac 3.375 BAG 3.375 GM/100 ML BAG IV ONE (09:00)
[2023-01-14] MEDS: Pantoprazole VIAL 40 MG VIAL IV SCH (09:15)
[2023-01-14] MEDS ORDERED: LORazepam 2 mg VIAL 1 ml ONE ×2 (10:41→10:43)
[2023-01-14] MEDS ORDERED: Lorazepam PYXIS KEY PRN ×3 (10:45→22:38)
[2023-01-14] MEDS: Heparin 1,000 UNIT/ML 10 ml (10,000 UNITS) CATHLAB/DIALYSIS DIALYSIS PRN (10:55)
[2023-01-14] MEDS: LORazepam 2 mg VIAL 1 ml IV PUSH PRN ×2 (11:51→20:17)
[2023-01-14] MEDS ORDERED: Iodixanol 320 (CONTRAST) 100 ML SDV ONE (12:42)
[2023-01-14] MEDS ORDERED: Lidocaine 1% VIAL 10 MG/ML 30 ML VIAL ONE (12:42)
[2023-01-14] MEDS ORDERED: Heparin 2 UNITS/ML IVPREMIX 3,000 UNIT/1,500 ML BAG IV ONE (12:42)
[2023-01-14] MEDS ORDERED: ZOSYN 3.375 GM Q8H per EXTENDED INFUSION IV SCH (14:00)
[2023-01-14] MEDS ORDERED: Heparin 1,000 UNIT/ML 10 ml (10,000 UNITS) CATHLAB/DIALYSIS ONE (14:59)
[2023-01-14] MEDS: Heparin DRIP 25,000 UNITS BAG 25,000 UNITS/500 ML BAG IV SCH (15:25)
[2023-01-14] MEDS: Piperacillin/Tazobac 3.375 BAG 3.375 GM/100 ML BAG IV SCH (15:49)
[2023-01-14 16:16] LABS: Calcium 7.7 mg/dL (8.6-10.3); Creatinine, Serum 2.23 mg/dL (0.67-1.17); Potassium 3.7 mmol/L (3.5-5.0); eGFR CKD-EPI 30.2 (>60)
[2023-01-14] MEDS ORDERED: Magnesium Sulfate 2 gm BAG 2 GM/50 ML BAG IVPB ONE (18:00)
[2023-01-14] MEDS ORDERED: LORazepam 2 mg VIAL 1 ml IV PUSH ONE ×2 (20:16→22:38)
[2023-01-14] MEDS: levETIRAcetam 1000MG IVPREMIX 1,000 MG/100 ML BAG IVPB SCH (22:50)
[2023-01-14] MEDS ORDERED: LORazepam 2 mg VIAL 1 ml IV PUSH PRN (23:21)
[2023-01-15] MEDS: fentaNYL INFUSION 50 mcg/mL VL 2,500 MCG/50 ML VIAL IV SCH (00:59)
[2023-01-15] MEDS: Albuterol/Ipratropium NEB.SOL (2.5/0.5 MG) 3 ML NEB.SOLN INH SCH ×4 (01:05→19:12)
[2023-01-15] MEDS: Chlorhexidine MOUTHWASH 0.12% 15 ML UDC SWISH SPIT SCH ×6 (01:09→21:33)
[2023-01-15] MEDS: Piperacillin/Tazobac 3.375 BAG 3.375 GM/100 ML BAG IV SCH ×2 (01:11→13:59)
[2023-01-15] MEDS: Propofol 10 mg/ml 100 ML BTL 1,000 MG/100 ML BTL IV SCH ×5 (02:43→19:30)
[2023-01-15] MEDS: Heparin 5000 UNITS/ML 1 mL VIAL IV SCH (02:44)
[2023-01-15 04:18] LABS: ABS Basophils 0.2 10^3/uL (0.0-0.1); ABS Eosinophils 0.6 10^3/uL (0.0-0.5); ABS Lymphocytes 2.3 10^3/uL (1.0-4.8); ABS Monocytes 1.1 10^3/uL (0.0-1.1); ABS Neutrophils 16.2 10^3/uL (1.5-7.6); ABS Nucleated RBC 0.02 10^3/ul; Eosinophil % 2.9 %; Hematocrit 36.1 % (38-53); Hemoglobin 12.2 g/dL (13.2-16.3); Lymphocyte % 11.4 %; Mean Corpuscular Hgb Conc 33.7 g/dL (31-36); Mean Corpuscular Volume 82.9 fL (80-97); Mean Platelet Volume 8.4 fL (7.5-11.2); Nucleated Red Blood Cells % 0.1 /100 WBC (0.0-0.4); Platelet Count 270 10^3/uL (150-450); Red Blood Count 4.35 10^6/uL (4.06-5.63); Red Cell Distribution Width 16.3 % (12-17); White Blood Count 20.4 10^3/uL (3.6-10.2)
[2023-01-15 04:33] LABS: Calcium 7.6 mg/dL (8.6-10.3); Creatinine, Serum 2.27 mg/dL (0.67-1.17); Magnesium 1.6 mg/dL (1.9-2.7); Phosphorus 3.4 mg/dL (2.5-5.0); Potassium 3.8 mmol/L (3.5-5.0); eGFR CKD-EPI 29.5 (>60)
[2023-01-15] MEDS: Norepinephrine 16MCG/ML BAGD5W 4,000 MCG/250 ML BAG IV SCH ×4 (04:49→21:33)
[2023-01-15] MEDS ORDERED: Magnesium Sulfate IV 3 GM in NS 0.9% 100 ml BAG 100 ML IVPB ONE (05:36)
[2023-01-15 06:04] LABS: PCO2 Arterial 26 mmHg (35-45); PO2 Arterial 84 mmHg (80-100); Resp Rate 24
[2023-01-15] MEDS: Budesonide NEB 0.5 MG/2 ML NEB.SOLN INH SCH ×2 (06:59→19:12)
[2023-01-15] MEDS ORDERED: levETIRAcetam 1000MG IVPREMIX 1,000 MG/100 ML BAG IVPB ONE (08:09)
[2023-01-15] MEDS ORDERED: Magnesium Sulfate 2 gm BAG 2 GM/50 ML BAG IVPB ONE (09:03)
[2023-01-15] MEDS: Pantoprazole VIAL 40 MG VIAL IV SCH (09:16)
[2023-01-15 09:17] LABS: Venous Bicarbonate HCO3 24.8 mmol/L (24-28)
[2023-01-15] MEDS: levETIRAcetam 1000MG IVPREMIX 1,000 MG/100 ML BAG IVPB SCH ×2 (09:19→21:33)
[2023-01-15] MEDS: Heparin DRIP 25,000 UNITS BAG 25,000 UNITS/500 ML BAG IV SCH (09:22)
[2023-01-15] MEDS ORDERED: Potassium Chloride LIQUID 20 MEQ/15 ML LIQUID PO ONE (09:30)
[2023-01-15 17:38] LABS: Calcium 7.3 mg/dL (8.6-10.3); Creatinine, Serum 2.15 mg/dL (0.67-1.17); Magnesium 2.1 mg/dL (1.9-2.7); Phosphorus 3.9 mg/dL (2.5-5.0); Potassium 4.1 mmol/L (3.5-5.0); eGFR CKD-EPI 31.5 (>60)
[2023-01-15] MEDS ORDERED: Insulin GLARGINE 100 un/ml 10 ml VIAL SUBCUT SCH (21:00)
[2023-01-16] MEDS: Albuterol/Ipratropium NEB.SOL (2.5/0.5 MG) 3 ML NEB.SOLN INH SCH ×4 (00:11→19:03)
[2023-01-16] MEDS: Propofol 10 mg/ml 100 ML BTL 1,000 MG/100 ML BTL IV SCH ×3 (01:37→18:29)
[2023-01-16] MEDS: Piperacillin/Tazobac 3.375 BAG 3.375 GM/100 ML BAG IV SCH ×2 (01:40→13:23)
[2023-01-16] MEDS: Chlorhexidine MOUTHWASH 0.12% 15 ML UDC SWISH SPIT SCH ×6 (02:22→21:15)
[2023-01-16] MEDS: Heparin DRIP 25,000 UNITS BAG 25,000 UNITS/500 ML BAG IV SCH (03:29)
[2023-01-16] MEDS: Norepinephrine 16MCG/ML BAGD5W 4,000 MCG/250 ML BAG IV SCH ×3 (05:00→21:15)
[2023-01-16 05:49] LABS: ABS Basophils 0.1 10^3/uL (0.0-0.1); ABS Eosinophils 0.4 10^3/uL (0.0-0.5); ABS Lymphocytes 1.4 10^3/uL (1.0-4.8); ABS Neutrophils 12.9 10^3/uL (1.5-7.6); ABS Nucleated RBC 0.01 10^3/ul; Eosinophil % 2.4 %; Hematocrit 33.1 % (38-53); Lymphocyte % 8.8 %; Mean Corpuscular Hemoglobin 28.1 pg (27-33); Mean Corpuscular Hgb Conc 33.4 g/dL (31-36); Mean Corpuscular Volume 84.3 fL (80-97); Mean Platelet Volume 8.6 fL (7.5-11.2); Platelet Count 224 10^3/uL (150-450); Red Blood Count 3.93 10^6/uL (4.06-5.63); Red Cell Distribution Width 16.2 % (12-17); White Blood Count 15.8 10^3/uL (3.6-10.2)
[2023-01-16] MEDS: fentaNYL INFUSION 50 mcg/mL VL 2,500 MCG/50 ML VIAL IV SCH (05:52)
[2023-01-16 06:05] LABS: Calcium 7.3 mg/dL (8.6-10.3); Creatinine, Serum 2.22 mg/dL (0.67-1.17); Potassium 4.1 mmol/L (3.5-5.0); eGFR CKD-EPI 30.3 (>60)
[2023-01-16] MEDS: Heparin 5000 UNITS/ML 1 mL VIAL IV SCH (06:32)
[2023-01-16] MEDS: Budesonide NEB 0.5 MG/2 ML NEB.SOLN INH SCH ×2 (06:47→19:04)
[2023-01-16] MEDS: Pantoprazole VIAL 40 MG VIAL IV SCH (07:57)
[2023-01-16] MEDS ORDERED: Bumetanide IV 0.25 MG/ML 4 ml VIAL (1 mg) IV SLOW PU ONE (10:00)
[2023-01-16] MEDS: levETIRAcetam 1000MG IVPREMIX 1,000 MG/100 ML BAG IVPB SCH ×2 (11:04→22:22)
[2023-01-16 11:15] LABS: TSH Ultra Thyroid Stim Horm 10.65 mcIU/mL (0.34-5.60)
[2023-01-16 11:47] LABS: Hepatitis B Surface Antigen Nonreactive (Nonreactive)
[2023-01-16 12:05] LABS: Hepatitis B Surface Ab Not Immune (Immune)
[2023-01-16] MEDS ORDERED: Lidocaine 1% w EPI 1:100,000 MDV 20 ML VIAL INJ ONE (13:36)
[2023-01-16] MEDS ORDERED: Lidocaine 1% w EPI 1:100,000 MDV 50 ML VIAL INJ ONE (15:00)
[2023-01-16 19:58] LABS: Calcium 7.3 mg/dL (8.6-10.3); Creatinine, Serum 2.24 mg/dL (0.67-1.17); Potassium 4.1 mmol/L (3.5-5.0)
[2023-01-16] MEDS ORDERED: Insulin GLARGINE 100 un/ml 10 ml VIAL SUBCUT SCH (21:00)
[2023-01-17] MEDS: Chlorhexidine MOUTHWASH 0.12% 15 ML UDC SWISH SPIT SCH ×6 (01:09→20:40)
[2023-01-17] MEDS: Piperacillin/Tazobac 3.375 BAG 3.375 GM/100 ML BAG IV SCH ×2 (01:10→16:58)
[2023-01-17 05:55] LABS: ABS Basophils 0.1 10^3/uL (0.0-0.1); ABS Eosinophils 0.3 10^3/uL (0.0-0.5); ABS Lymphocytes 1.6 10^3/uL (1.0-4.8); ABS Monocytes 0.8 10^3/uL (0.0-1.1); ABS Neutrophils 12.4 10^3/uL (1.5-7.6); Eosinophil % 2.1 %; Hematocrit 31.8 % (38-53); Hemoglobin 10.6 g/dL (13.2-16.3); Lymphocyte % 10.2 %; Mean Corpuscular Hemoglobin 28.2 pg (27-33); Mean Corpuscular Hgb Conc 33.4 g/dL (31-36); Mean Corpuscular Volume 84.4 fL (80-97); Mean Platelet Volume 8.4 fL (7.5-11.2); Platelet Count 206 10^3/uL (150-450); Red Blood Count 3.77 10^6/uL (4.06-5.63); Red Cell Distribution Width 16.5 % (12-17); White Blood Count 15.2 10^3/uL (3.6-10.2)
[2023-01-17] MEDS: Propofol 10 mg/ml 100 ML BTL 1,000 MG/100 ML BTL IV SCH (06:08)
[2023-01-17] MEDS: Heparin DRIP 25,000 UNITS BAG 25,000 UNITS/500 ML BAG IV SCH (06:10)
[2023-01-17 06:14] LABS: Calcium 7.4 mg/dL (8.6-10.3); Creatinine, Serum 2.15 mg/dL (0.67-1.17); Magnesium 1.8 mg/dL (1.9-2.7); Potassium 3.9 mmol/L (3.5-5.0); eGFR CKD-EPI 31.5 (>60)
[2023-01-17] MEDS: Albuterol/Ipratropium NEB.SOL (2.5/0.5 MG) 3 ML NEB.SOLN INH SCH ×5 (07:04→23:57)
[2023-01-17] MEDS: Budesonide NEB 0.5 MG/2 ML NEB.SOLN INH SCH ×2 (07:04→18:45)
[2023-01-17] MEDS ORDERED: Insulin GLARGINE 100 un/ml 10 ml VIAL SUBCUT ONE (07:32)
[2023-01-17] MEDS: Pantoprazole VIAL 40 MG VIAL IV SCH (07:48)
[2023-01-17] MEDS ORDERED: Insulin GLARGINE 100 un/ml 10 ml VIAL SUBCUT SCH (09:00)
[2023-01-17] MEDS: Norepinephrine 16MCG/ML BAGD5W 4,000 MCG/250 ML BAG IV SCH (09:02)
[2023-01-17] MEDS: Bumetanide IV 0.25 MG/ML 4 ml VIAL (1 mg) IV SLOW PU SCH ×2 (11:39→20:40)
[2023-01-17] MEDS: levETIRAcetam 500 MG IVPREMIX 500 MG/100 ML BAG IV SCH ×2 (11:56→23:08)
[2023-01-17 12:20] LABS: Glucose Confirmatory 457 mg/dL (70-100)
[2023-01-17 18:35] LABS: Glucose Confirmatory 430 mg/dL (70-100)
[2023-01-17] MEDS ORDERED: Lorazepam PYXIS KEY PRN (19:24)
[2023-01-17] MEDS ORDERED: LORazepam 2 mg VIAL 1 ml IV PUSH PRN (19:24)
[2023-01-17] MEDS: Insulin GLARGINE 100 un/ml 10 ml VIAL SUBCUT SCH (20:57)
[2023-01-18] MEDS: Chlorhexidine MOUTHWASH 0.12% 15 ML UDC SWISH SPIT SCH ×6 (02:52→22:55)
[2023-01-18 04:20] LABS: ABS Basophils 0.1 10^3/uL (0.0-0.1); ABS Eosinophils 0.4 10^3/uL (0.0-0.5); ABS Lymphocytes 1.7 10^3/uL (1.0-4.8); ABS Monocytes 1.1 10^3/uL (0.0-1.1); ABS Neutrophils 12.5 10^3/uL (1.5-7.6); ABS Nucleated RBC 0.01 10^3/ul; Eosinophil % 2.6 %; Hematocrit 30.5 % (38-53); Hemoglobin 10.1 g/dL (13.2-16.3); Lymphocyte % 10.9 %; Mean Corpuscular Hemoglobin 27.8 pg (27-33); Mean Corpuscular Hgb Conc 33.1 g/dL (31-36); Mean Corpuscular Volume 84.1 fL (80-97); Mean Platelet Volume 8.2 fL (7.5-11.2); Platelet Count 203 10^3/uL (150-450); Red Blood Count 3.63 10^6/uL (4.06-5.63); Red Cell Distribution Width 16.1 % (12-17); White Blood Count 15.8 10^3/uL (3.6-10.2)
[2023-01-18 04:36] LABS: Albumin 2.6 g/dL (3.2-5.2); Albumin/Globulin Ratio 0.8 (1-3); Calcium 7.7 mg/dL (8.6-10.3); Creatinine, Serum 2.02 mg/dL (0.67-1.17); Globulin 3.1 g/dL (2-4); Magnesium 1.8 mg/dL (1.9-2.7); Potassium 3.8 mmol/L (3.5-5.0); Total Bilirubin 0.3 mg/dL (0.2-1.0); Total Protein 5.7 g/dL (6.4-8.9)
[2023-01-18] MEDS: Propofol 10 mg/ml 100 ML BTL 1,000 MG/100 ML BTL IV SCH (06:18)
[2023-01-18] MEDS ORDERED: Magnesium Sulfate 2 gm BAG 2 GM/50 ML BAG IVPB ONE (07:33)
[2023-01-18] MEDS ORDERED: KCL 20 MEQ/100 ML IVPREMIX 20 MEQ/100 ML BAG IV ONE (07:34)
[2023-01-18] MEDS: Budesonide NEB 0.5 MG/2 ML NEB.SOLN INH SCH ×2 (07:58→19:39)
[2023-01-18] MEDS: Albuterol/Ipratropium NEB.SOL (2.5/0.5 MG) 3 ML NEB.SOLN INH SCH ×3 (07:59→19:39)
[2023-01-18] MEDS ORDERED: KCL 20 MEQ/100 ML IVPREMIX 20 MEQ/100 ML BAG IV SCH (08:00)
[2023-01-18] MEDS: Pantoprazole VIAL 40 MG VIAL IV SCH (09:11)
[2023-01-18] MEDS: Bumetanide IV 0.25 MG/ML 4 ml VIAL (1 mg) IV SLOW PU SCH ×2 (09:11→22:55)
[2023-01-18] MEDS: levETIRAcetam 500 MG IVPREMIX 500 MG/100 ML BAG IV SCH ×2 (13:08→23:36)
[2023-01-18] MEDS ORDERED: Glycopyrrolate IV 0.2 MG/ML 1 ML VIAL IV SLOW PU PRN (14:53)
[2023-01-18] MEDS: Insulin GLARGINE 100 un/ml 10 ml VIAL SUBCUT SCH (22:56)
[2023-01-19] MEDS: Albuterol/Ipratropium NEB.SOL (2.5/0.5 MG) 3 ML NEB.SOLN INH SCH ×2 (01:08→06:47)
[2023-01-19] MEDS: Chlorhexidine MOUTHWASH 0.12% 15 ML UDC SWISH SPIT SCH ×4 (04:21→08:04)
[2023-01-19 04:53] LABS: ABS Basophils 0.1 10^3/uL (0.0-0.1); ABS Eosinophils 0.3 10^3/uL (0.0-0.5); ABS Lymphocytes 1.7 10^3/uL (1.0-4.8); ABS Monocytes 0.8 10^3/uL (0.0-1.1); ABS Neutrophils 10.5 10^3/uL (1.5-7.6); ABS Nucleated RBC 0.02 10^3/ul; Eosinophil % 2.3 %; Hematocrit 30.4 % (38-53); Hemoglobin 9.9 g/dL (13.2-16.3); Lymphocyte % 12.9 %; Mean Corpuscular Hemoglobin 27.6 pg (27-33); Mean Corpuscular Hgb Conc 32.7 g/dL (31-36); Mean Corpuscular Volume 84.4 fL (80-97); Mean Platelet Volume 8.1 fL (7.5-11.2); Nucleated Red Blood Cells % 0.1 /100 WBC (0.0-0.4); Platelet Count 216 10^3/uL (150-450); Red Cell Distribution Width 15.8 % (12-17); White Blood Count 13.4 10^3/uL (3.6-10.2)
[2023-01-19 05:15] LABS: Albumin 2.9 g/dL (3.2-5.2); Calcium 7.9 mg/dL (8.6-10.3); Creatinine, Serum 1.91 mg/dL (0.67-1.17); Globulin 2.9 g/dL (2-4); Magnesium 2.2 mg/dL (1.9-2.7); Potassium 3.8 mmol/L (3.5-5.0); Total Bilirubin 0.3 mg/dL (0.2-1.0); Total Protein 5.8 g/dL (6.4-8.9); eGFR CKD-EPI 36.3 (>60)
[2023-01-19] MEDS: Budesonide NEB 0.5 MG/2 ML NEB.SOLN INH SCH (06:47)
[2023-01-19] MEDS ORDERED: KCL 20 MEQ/100 ML IVPREMIX 20 MEQ/100 ML BAG IV ONE (07:13)
[2023-01-19] MEDS: Bumetanide IV 0.25 MG/ML 4 ml VIAL (1 mg) IV SLOW PU SCH (07:25)
[2023-01-19] MEDS: Pantoprazole VIAL 40 MG VIAL IV SCH (07:25)
[2023-01-19] MEDS ORDERED: Lorazepam PYXIS KEY PRN (07:41)
[2023-01-19] MEDS: HYDROmorphone 1 MG/1 ML SYRINGE IV PRN ×3 (09:55→17:17)
[2023-01-19] MEDS: LORazepam 2 mg VIAL 1 ml IV PUSH PRN ×5 (09:56→17:17)
[2023-01-19 10:52] VITALS: BP 132/75
== END 2023-01-19 18:00 | disposition expired | DRG 853 ==
LOC: ED 14:09 → SUATTDRO 16:18 → EDHOLD 16:18 → ICU 16:55
PROVIDERS: ADMIT Student in an Organized Health Care Education/Training Program; ATTEND Internal Medicine Critical Care Medicine